=== PATIENT | male | born 1950 | race Caucasian/White ===

== ENCOUNTER 2016-04-01 14:02 | Emergency (ER) | payer OTHER ==
[~2016-04-01] VITALS: Ht 175.3 cm; Wt 100.0 kg
[~2016-04-01 14:02] MED LIST: ALBU6.7H INH; ASMA220A INH; ASPI81TA82 PO; CARD120T4 PO; FLUN25I; IBUP600T26 PO; LEVO50IN PO; METO10TA PO; THIA100T PO; TRAM50TA PO; TRAZ50TA78 PO; WAL-10TA2 PO; ZOCO80TA PO; [UNRECOGNIZED DRUG - CODE] PO
[2016-04-01] MEDS ORDERED: SODIUM CHLORIDE 0.9% FLUSH 5 ML FLUSH IVF PRN (14:30)
[2016-04-01 14:32] VITALS: BP 154/74; PULSE 52; RESP 14; TEMP 97.7; O2SAT 99
--- NOTE | 2016-04-01 14:41 | PD ---
HPI . Chest pain Chief Complaint: Chest Pain Time Seen by Provider: 14:29 Travel History International Travel<30 days: No Contact w/Intl Traveler<30days: No Traveled to known affect area: No History of Present Illness HPI The patient presents to us from the [facility] clinic for chest pain. He was at the [facility] clinic having his toenails trimmed when he developed chest pain. He states that he was treated by 4 baby aspirin and a single sublingual nitroglycerin and he is now pain-free. He denies any shortness of breath, diaphoresis, nausea, dizziness. PFSH Past Medical History Arthritis: Yes (GENERALIZED) Asthma: Yes Autoimmune Disease: No Blood Disorders: Yes (blood clots in legs and lung) Bipolar Disorder: Yes Anxiety: Yes Depression: Yes Heart Rhythm Problems: No Cancer: Yes (LUNG) Cardiovascular Problems: Yes High Cholesterol: Yes Chemotherapy: No Chest Pain: Yes Congestive Heart Failure: No COPD: Yes Cerebrovascular Accident: No Diabetes: No Diminished Hearing: No Endocrine: Yes Gastrointestinal Disorders: Yes (HERNIA) GERD: Yes Genitourinary: No Hiatal Hernia: Yes Hypertension: Yes Immune Disorder: No Implanted Vascular Access Dvce: Yes Musculoskeletal: Yes (NICOLE. WRIST GANGLION CYSTS) Neurologic: Yes Psychiatric: Yes Reproductive: No Respiratory: Yes (COPD) Migraines: Yes Myocardial Infarction: Yes Radiation Therapy: No Seizures: Yes (DT'S) Sleep Apnea: Yes Thyroid Disease: Yes Past Surgical History Abdominal Surgery: Yes (RIGHT INGUINAL HERNIA REPAIR) Body Medical Devices: MANDIBULAR HARDWARE Neurologic Surgery: Yes (MULTIPLE FACIAL TRAUMA R/O HEAD TRAUMA) Oral Surgery: Yes (THROAT TUMOR EXCISED) Thoracic Surgery: Yes (PARTIAL LEFT LOBECTOMY -2006) Other Surgery: Yes (TRACH PLACEMENT AND REMOVAL R/T HEAD TRAUMA) Social History Alcohol Use: Yes (DAILY) Tobacco Use: No Substance Use: Yes (MARIJUANA) Allergies-Medications (Allergen,Severity, Reaction): Coded Allergies: Elavil (Verified Allergy, Severe, HEART MURMUR, 03/22/14) Pupukea (Verified Allergy, Severe, THYROID PROBLEMS?, 03/22/14) Tegretol (Verified Allergy, Severe, HEART MURMUR, 03/22/14) Reported Meds & Prescriptions Reported Meds & Active Scripts Active Reported Loratadine 10 Mg Tab 10 Mg PO DAILY Review of Systems Except as stated in HPI: all other systems reviewed are Neg General / Constitutional: No: Fever, Chills Cardiovascular: Positive: Chest Pain or Discomfort Respiratory: No: Shortness of Breath Gastrointestinal: No: Nausea, Vomiting Neurologic: No: Weakness, Dizziness Physical Exam Narrative GENERAL: This is a 65-year-old man who is awake and alert and in no distress. SKIN: Warm and dry. No diaphoresis. HEAD: Atraumatic. Normocephalic. EYES: Pupils equal and round. ENT: No nasal bleeding or discharge. Mucous membranes pink and moist. NECK: Trachea midline. Neck supple. CARDIOVASCULAR: Regular rate and rhythm. Heart sounds are normal. RESPIRATORY: No accessory muscle use. Lungs clear to auscultation throughout. Chest wall is nontender to palpation. GASTROINTESTINAL: Abdomen soft, non-tender, nondistended. MUSCULOSKELETAL: No obvious deformities. No edema. No leg tenderness. NEUROLOGICAL: Awake and alert. No obvious cranial nerve deficits. Motor grossly within normal limits. Normal speech. PSYCHIATRIC: Appropriate mood and affect; insight and judgment normal. Data Data Last Documented VS Vital Signs Date Time Temp Pulse Resp B/P Pulse Ox O2 Delivery O2 Flow Rate FiO2 04/01/16 14:32 97.7 52 14 154/74 99 Orders Electrocardiogram (04/01/16 14:29) Basic Metabolic Panel (Bmp) (04/01/16 14:29) Ckmb (Isoenzyme) Profile (04/01/16 14:29) Complete Blood Count With Diff (04/01/16 14:29) Magnesium (Mg) (04/01/16 14:29) Prothrombin Time / Inr (Pt) (04/01/16 14:29) Act Partial Throm Time (Ptt) (04/01/16 14:29) Troponin I (04/01/16 14:29) Chest, Single Ap (04/01/16 14:29) Ecg Monitoring (04/01/16 14:29) Iv Access Insert/Monitor (04/01/16 14:29) Sodium Chloride 0.9% Flush (Ns Flush) (04/01/16 14:30) Labs Laboratory Tests Test 04/01/16 14:50 White Blood Count 12.3 TH/MM3 Red Blood Count 4.60 MIL/MM3 Hemoglobin 13.1 GM/DL Hematocrit 39.7 % Mean Corpuscular Volume 86.1 FL Mean Corpuscular Hemoglobin 28.5 PG Mean Corpuscular Hemoglobin 33.1 % Concent Red Cell Distribution Width 15.0 % Platelet Count 269 TH/MM3 Mean Platelet Volume 9.3 FL Neutrophils (%) (Auto) 72.4 % Lymphocytes (%) (Auto) 19.3 % Monocytes (%) (Auto) 6.5 % Eosinophils (%) (Auto) 1.1 % Basophils (%) (Auto) 0.7 % Neutrophils # (Auto) 8.9 TH/MM3 Lymphocytes # (Auto) 2.4 TH/MM3 Monocytes # (Auto) 0.8 TH/MM3 Eosinophils # (Auto) 0.1 TH/MM3 Basophils # (Auto) 0.1 TH/MM3 CBC Comment DIFF FINAL Differential Comment Prothrombin Time 10.7 SEC Prothromb Time International 1.0 RATIO Ratio Activated Partial 27.9 SEC Thromboplast Time Sodium Level 138 MEQ/L Potassium Level 4.4 MEQ/L Chloride Level 104 MEQ/L Carbon Dioxide Level 25.1 MEQ/L Anion Gap 9 MEQ/L Blood Urea Nitrogen 13 MG/DL Creatinine 1.25 MG/DL Estimat Glomerular Filtration 58 ML/MIN Rate Random Glucose 87 MG/DL Calcium Level 9.1 MG/DL Magnesium Level 2.0 MG/DL Total Creatine Kinase 60 U/L Troponin I LESS THAN 0.02 NG/ML MDM Medical Decision Making Medical Screen Exam Complete: Yes Emergency Medical Condition: Yes Interpretation(s) EKG shows a normal sinus rhythm with no ST segment elevation or depression. Differential Diagnosis Differential diagnosis of chest pain includes but is not limited to musculoskeletal pain, pulmonary embolism, acute coronary syndrome, pneumonia, pleurisy Narrative Course This is a 65-year-old who presents to us from the rehabilitation clinic for chest pain which is now resolved. He was treated prior to presentation with aspirin and nitroglycerin. He has multiple underlying medical issues including hypertension, hyperlipidemia, coronary artery disease status post previous WA and previous DVT. Furthermore, he has a history of lung cancer. Chest x-ray is negative to the radiologist's interpretation. Chest x-ray was independently viewed by me. CBC has a white count of 12.3. H&H is 13.1.7. INR is 1.0. Chemistries are remarkable only for a decreased GFR of 58. CK-MB and troponin are negative. Disposition was discussed with the patient. He feels that he is safe to go home. I agree. He states that his doctor just wanted him to come here and have blood work done. He will follow up with her. Diagnosis Primary Impression: Chest pain Qualified Code: R07.9 - Chest pain, unspecified type Patient Instructions: Chest Pain (ED), General Instructions Disposition: 01 DISCHARGE HOME Condition: Stable Nasrin Aguirre MD Apr 01, 2016 14:41
[2016-04-01] MEDS ORDERED: LORA10TA PO (15:03)
[2016-04-01 15:14] LABS: AUTOMATED NEUTROPHIL # 8.9 TH/MM3 (1.8-7.7); BASOPHIL # 0.1 TH/MM3 (0-0.2); BASOPHIL % 0.7 % (0.0-2.0); EOSINOPHIL # 0.1 TH/MM3 (0-0.4); EOSINOPHIL % 1.1 % (0.0-4.0); HEMATOCRIT 39.7 % (39.0-51.0); HEMO FLAGS DIFF FINAL; LYMPH % 19.3 % (9.0-44.0); LYMPHOCYTE # 2.4 TH/MM3 (1.0-4.8); MEAN CELL VOLUME 86.1 FL (80.0-100.0); MEAN CORPUSCULAR HEMOGLOBIN 28.5 PG (27.0-34.0); MEAN CORPUSCULAR HGB CONC 33.1 % (32.0-36.0); MONO % 6.5 % (0.0-8.0); NEUT % 72.4 % (16.0-70.0); PLATELET COUNT 269 TH/MM3 (150-450); WHITE BLOOD COUNT 12.3 TH/MM3 (4.0-11.0)
--- NOTE | 2016-04-01 15:22 | RADRPT ---
EXAM DATE/TIME: 04/01/2016 14:42 [facility] COMPARISON: CHEST SINGLE AP, June 01, 2013, 14:24. INDICATIONS : Chest pain MEDICAL HISTORY : None. SURGICAL HISTORY : None. ENCOUNTER: Initial ACUITY: 1 day PAIN SCORE: 4/10 LOCATION: Bilateral chest FINDINGS: A single view of the chest demonstrates the lungs to be symmetrically aerated without evidence of mas s, infiltrate or effusion. Minimal scarring left lower lobe. The cardiomediastinal contours are unre markable. Osseous structures are intact. CONCLUSION: 1. Minimal scarring left lower lobe. 2. Right lung is clear. Zach Kulkarni MD on April 01, 2016 at 15:19 Board Certified Radiologist. This report was verified electronically.
[2016-04-01 15:25] LABS: APTT (PATIENT) 27.9 SEC (24.3-30.1); PROTHROMBIN TIME - PATIENT 10.7 SEC (9.8-11.6)
[2016-04-01 15:43] LABS: ANION GAP 9 MEQ/L (5-15); BICARBONATE 25.1 MEQ/L (21.0-32.0); BLOOD UREA NITROGEN 13 MG/DL (7-18); CHLORIDE 104 MEQ/L (98-107); GLOMERULAR FILTRATION RATE 58 ML/MIN (>89); POTASSIUM 4.4 MEQ/L (3.5-5.1); SODIUM (NA) 138 MEQ/L (136-145)
[2016-04-01 15:56] LABS: CREATINE KINASE 60 U/L (39-308)
--- NOTE | 2016-04-02 15:24 | EKG ---
Date Performed: 04/01/2016 Time Performed: 14:48:47 PTAGE: 65 years EKG: SINUS BRADYCARDIA LOW QRS VOLTAGE IN EXTREMITY LEADS LEFT ANTERIOR FASCICULAR BLOCK INFERIO R MYOCARDIAL INFARCTION ABNORMAL ECG PREVIOUS TRACING : 06/01/2013 15.10 Compared to previous tracing, the patient is no longer tach ycardic. DOCTOR: Bita Turner Interpretating Date/Time 04/02/2016 15:23:26
== END 2016-04-02 00:36 | disposition home or self-care (01) ==
LOC: NEDAMB 14:02
DX: R07.9 Chest pain, unspecified (principal); E78.00 Pure hypercholesterolemia, unspecified; J44.9 Chronic obstructive pulmonary disease, unspecified; K21.9 Gastro-esophageal reflux disease without esophagitis; I10 Essential (primary) hypertension; R00.1 Bradycardia, unspecified; R94.31 Abnormal electrocardiogram [ECG] [EKG]; I44.4 Left anterior fascicular block; I25.2 Old myocardial infarction
CPT/HCPCS: 71010; 80048; 82550; 83735; 84484; 85025; 85610; 85730; 93005

== ENCOUNTER 2016-12-03 06:31 | Observation (INO) | payer MEDICARE, OTHER ==
[~2016-12-03] VITALS: Ht 177.8 cm; Wt 100.0 kg
[~2016-12-03 06:31] MED LIST changes: -ALBU6.7H INH; -ASMA220A INH; -ASPI81TA82 PO; -CARD120T4 PO; -FLUN25I; -IBUP600T26 PO; -LEVO50IN PO; +LORA10TA PO; -METO10TA PO; -THIA100T PO; -TRAM50TA PO; -TRAZ50TA78 PO; -WAL-10TA2 PO; -ZOCO80TA PO; -[UNRECOGNIZED DRUG - CODE] PO
[2016-12-03 06:32] VITALS: BP 142/74; PULSE 84; RESP 17; TEMP 97.7; O2SAT 97
[2016-12-03] MEDS ORDERED: RESP: ALBUTEROL 2.5 MG/IPRATROPIUM 0.5 MG NEB (SCH) INH ONE (07:30)
[2016-12-03] MEDS ORDERED: RESP: ALBUTEROL 2.5 MG/3 ML NEB (SCH) INH ONE (07:30)
--- NOTE | 2016-12-03 07:32 | PD ---
HPI Chief Complaint: Respiratory Distress Time Seen by Provider: 07:22 Travel History International Travel<30 days: No Contact w/Intl Traveler<30days: No Traveled to known affect area: No History of Present Illness HPI This is a 66-year-old gentleman with history of COPD, esophageal strictures, who presents today with complaints of shortness of breath and vomiting. The patient reports that when he drinks or eats anything, he throws it right back up again. He reports pulling of his secretions. He reports last night he had to sleep sitting up because he could not swallow the fluid in his esophagus. The patient denies any chest pain, chest pressure. He called EMS this morning who gave him 125 mg of Solu-Medrol and one breathing treatment. He states in the past he's had to have esophageal dilatation. He states he was just recently admitted to [facility] for broken ribs and COPD and pneumonia. PFSH Past Medical History Arthritis: Yes (GENERALIZED) Asthma: Yes Autoimmune Disease: No Blood Disorders: Yes (blood clots in legs and lung) Bipolar Disorder: Yes Anxiety: Yes Depression: Yes Heart Rhythm Problems: No Cancer: Yes (LUNG) Cardiovascular Problems: Yes High Cholesterol: Yes Chemotherapy: No Chest Pain: Yes Congestive Heart Failure: No COPD: Yes Cerebrovascular Accident: No Diabetes: No Diminished Hearing: No Endocrine: Yes Gastrointestinal Disorders: Yes (HERNIA; esophageal stenosis w/dilation of esophagus) GERD: Yes Genitourinary: No Hiatal Hernia: Yes Hypertension: Yes Immune Disorder: No Implanted Vascular Access Dvce: Yes Musculoskeletal: Yes (NICOLE. WRIST GANGLION CYSTS) Neurologic: Yes Psychiatric: Yes Reproductive: No Respiratory: Yes (COPD) Migraines: Yes Myocardial Infarction: Yes Radiation Therapy: No Seizures: Yes (DT'S) Sleep Apnea: Yes Thyroid Disease: Yes Past Surgical History Abdominal Surgery: Yes (RIGHT INGUINAL HERNIA REPAIR) Body Medical Devices: MANDIBULAR HARDWARE Neurologic Surgery: Yes (MULTIPLE FACIAL TRAUMA R/O HEAD TRAUMA) Oral Surgery: Yes (THROAT TUMOR EXCISED) Thoracic Surgery: Yes (PARTIAL LEFT LOBECTOMY -2006) Other Surgery: Yes (TRACH PLACEMENT AND REMOVAL R/T HEAD TRAUMA) Social History Alcohol Use: Yes (DAILY) Tobacco Use: Yes Substance Use: Yes (MARIJUANA) Allergies-Medications (Allergen,Severity, Reaction): Coded Allergies: amitriptyline (Unverified Allergy, Severe, HEART MURMUR, 12/03/16) carbamazepine (Unverified Allergy, Severe, HEART MURMUR, 12/03/16) lithium (Unverified Allergy, Severe, THYROID PROBLEMS?, 12/03/16) Reported Meds & Prescriptions Reported Meds & Active Scripts Active Reported Eql Nicotine (Nicotine Polacrilex) 2 Mg Simone Q1HR NEB Eq Nicotine (Nicotine) 14 Mg/24 Hour Dis Metoprolol Succinate ER 24 HR (Metoprolol Succinate) 100 Mg Tab 100 Mg PO DAILY Allergy Relief (Loratadine) 10 Mg Tab 10 Mg PO DAILY Levothyroxine (Levothyroxine Sodium) 25 Mcg Tab 0.125 Mcg PO AC BREAKFAST Indomethacin 25 Mg Cap 25 Mg PO TID Take with food, milk, or antacids to decrease stomach adverse effects. Cough Syrup (Guaifenesin) 100 Mg/5 Ml Liquid Folic Acid 0.8 Mg Tab 1 Mg PO DAILY Kls Aller-Luis Armando (Fluticasone Propionate (Nasal)) 50 Mcg/Actuation Spr Vitamin D3 (Cholecalciferol) 2,000 Unit Cap 2,000 Units PO DAILY Atorvastatin (Atorvastatin Calcium) 40 Mg Tab 40 Mg PO HS Aspirin EC (Aspirin) 81 Mg Tabdr 81 Mg PO DAILY Tylenol (Acetaminophen) 325 Mg Tab 650 Mg PO Q8HR PRN Review of Systems Except as stated in HPI: all other systems reviewed are Neg General / Constitutional: No: Fever, Chills HENT: No: Headaches, Neck Pain Cardiovascular: No: Chest Pain or Discomfort, Palpitations Respiratory: Positive: Cough, Shortness of Breath, Wheezing Gastrointestinal: Positive: Nausea, Vomiting, No: Abdominal Pain Genitourinary: No: Dysuria, Decreased Urinary Output Musculoskeletal: No: Weakness, Pain Neurologic: No: Weakness, Dizziness, Headache Physical Exam Narrative GENERAL: Well-developed well-nourished male in no acute respiratory distress. SKIN: Focused skin assessment warm/dry. HEAD: Atraumatic. Normocephalic. EYES: Pupils equal and round. No scleral icterus. No injection or drainage. ENT: No nasal bleeding or discharge. Mucous membranes pink and moist. NECK: Trachea midline. Supple. CARDIOVASCULAR: Regular rate and rhythm. No murmur appreciated. RESPIRATORY: No accessory muscle use. Fine Rales heard at the bilateral bases. No rhonchi appreciated. GASTROINTESTINAL: Abdomen soft, non-tender, nondistended. MUSCULOSKELETAL: No obvious deformities. No clubbing. No cyanosis. No edema. NEUROLOGICAL: Awake and alert. No obvious cranial nerve deficits. Motor grossly within normal limits. Normal speech. PSYCHIATRIC: Appropriate mood and affect; insight and judgment normal. Data Data Last Documented VS Vital Signs Date Time Temp Pulse Resp B/P (MAP) Pulse Ox O2 Delivery O2 Flow Rate FiO2 12/03/16 08:04 98 Nasal Cannula 3.00 12/03/16 06:32 97.7 84 17 142/74 (96) Orders Orders Complete Blood Count With Diff (12/03/16 07:22) Basic Metabolic Panel (Bmp) (12/03/16 07:22) Ckmb (Isoenzyme) Profile (12/03/16 07:22) Troponin I (12/03/16 07:22) Iv Access Insert/Monitor (12/03/16 07:22) Ecg Monitoring (12/03/16 07:22) Oximetry (12/03/16 07:22) Oxygen Administration (12/03/16 07:22) Chest, Pa & Lat (12/03/16 07:22) Sodium Chloride 0.9% Flush (Ns Flush) (12/03/16 07:30) Albuterol-Ipratropium Neb (Duoneb Neb) (12/03/16 07:30) Albuterol Neb (Albuterol Neb) (12/03/16 07:30) B-Type Natriuretic Peptide (12/03/16 07:22) Electrocardiogram (12/03/16 06:32) Place In Observation (12/03/16 ) Vital Signs (Adult) Q4H (12/03/16 09:03) Activity Oob With Assistance (12/03/16 09:03) Diet Npo (12/03/16 Breakfast) Sodium Chlor 0.9% 1000 Ml Inj (Ns 1000 M (12/03/16 09:03) Ondansetron Inj (Zofran Inj) (12/03/16 09:15) Basic Metabolic Panel (Bmp) (12/04/16 06:00) Complete Blood Count With Diff (12/04/16 06:00) Speech Therapy Consult-Eval/Tx (12/03/16 09:03) Scd Bilateral/Knee High PRISCILLA.BID (12/03/16 09:03) Yossi Bilateral/Knee High PRISCILLA.QSHIFT (12/03/16 09:03) Naloxone Inj (Narcan Inj) (12/03/16 09:15) Magnesium Hydroxide Liq (Milk Of Magnesi (12/03/16 09:15) Sennosides (Senokot) (12/03/16 09:15) Bisacodyl Supp (Dulcolax Supp) (12/03/16 09:15) Lactulose Liq (Lactulose Liq) (12/03/16 09:15) Consult Gastroenterology (12/03/16 ) Admit Order (Ed Use Only) (12/03/16 09:03) Labs Laboratory Tests Test 12/03/16 07:00 White Blood Count 16.7 TH/MM3 Red Blood Count 4.56 MIL/MM3 Hemoglobin 13.1 GM/DL Hematocrit 40.1 % Mean Corpuscular Volume 88.1 FL Mean Corpuscular Hemoglobin 28.8 PG Mean Corpuscular Hemoglobin Concent 32.7 % Red Cell Distribution Width 15.7 % Platelet Count 336 TH/MM3 Mean Platelet Volume 9.4 FL Neutrophils (%) (Auto) 67.0 % Lymphocytes (%) (Auto) 21.7 % Monocytes (%) (Auto) 6.8 % Eosinophils (%) (Auto) 3.7 % Basophils (%) (Auto) 0.8 % Neutrophils # (Auto) 11.2 TH/MM3 Lymphocytes # (Auto) 3.6 TH/MM3 Monocytes # (Auto) 1.1 TH/MM3 Eosinophils # (Auto) 0.6 TH/MM3 Basophils # (Auto) 0.1 TH/MM3 CBC Comment DIFF FINAL Differential Comment Blood Urea Nitrogen 9 MG/DL Creatinine 1.21 MG/DL Random Glucose 108 MG/DL Calcium Level 9.2 MG/DL Sodium Level 133 MEQ/L Potassium Level 4.4 MEQ/L Chloride Level 98 MEQ/L Carbon Dioxide Level 25.7 MEQ/L Anion Gap 9 MEQ/L Estimat Glomerular Filtration Rate 60 ML/MIN Total Creatine Kinase 43 U/L Troponin I LESS THAN 0.02 NG/ML MDM Medical Decision Making Medical Screen Exam Complete: Yes Emergency Medical Condition: Yes Differential Diagnosis Esophageal stricture versus COPD exacerbation versus pneumonia versus CHF Narrative Course 66-year-old male presents with shortness of breath and vomiting. The patient has a history of esophageal strictures that's been stretched in the past. He states that last night he was coughing and spitting up and vomiting fluid that was curling up from his esophagus and stomach. He states that he was worried that he would stop breathing. He denies any fevers, chills. He reports that he was recently admitted to [facility] for pneumonia and rib fractures. His white blood cell count is 16,700. On exam he has Rales in his bilateral bases. Chest x-ray does not show infiltrate. My concern is that he may have had aspiration pneumonia. I discussed the case with Dr. Dusty Arango, [place], who agrees for an observation admission. He' ll likely need a GI consult. Diagnosis Primary Impression: COPD exacerbation Additional Impressions: Nausea & vomiting Leukocytosis suspected aspiration pneumonia Admitting Information Admitting Physician Requests: Observation Drew James MD Dec 03, 2016 07:32
[2016-12-03 07:45] LABS: AUTOMATED NEUTROPHIL # 11.2 TH/MM3 (1.8-7.7); BASOPHIL # 0.1 TH/MM3 (0-0.2); BASOPHIL % 0.8 % (0.0-2.0); EOSINOPHIL # 0.6 TH/MM3 (0-0.4); EOSINOPHIL % 3.7 % (0.0-4.0); HEMATOCRIT 40.1 % (39.0-51.0); HEMO FLAGS DIFF FINAL; LYMPH % 21.7 % (9.0-44.0); LYMPHOCYTE # 3.6 TH/MM3 (1.0-4.8); MEAN CELL VOLUME 88.1 FL (80.0-100.0); MEAN CORPUSCULAR HEMOGLOBIN 28.8 PG (27.0-34.0); MEAN CORPUSCULAR HGB CONC 32.7 % (32.0-36.0); MONO % 6.8 % (0.0-8.0); PLATELET COUNT 336 TH/MM3 (150-450); RED BLOOD COUNT 4.56 MIL/MM3 (4.50-5.90); RED CELL DISTRIBUTION WIDTH 15.7 % (11.6-17.2); WHITE BLOOD COUNT 16.7 TH/MM3 (4.0-11.0)
[2016-12-03 07:47] VITALS: O2SAT 98
[2016-12-03 08:02] LABS: ANION GAP 9 MEQ/L (5-15); BICARBONATE 25.7 MEQ/L (21.0-32.0); BLOOD UREA NITROGEN 9 MG/DL (7-18); CHLORIDE 98 MEQ/L (98-107); GLOMERULAR FILTRATION RATE 60 ML/MIN (>89); POTASSIUM 4.4 MEQ/L (3.5-5.1); SODIUM (NA) 133 MEQ/L (136-145)
[2016-12-03 08:04] VITALS: O2SAT 98
[2016-12-03 08:07] LABS: CREATINE KINASE 43 U/L (39-308)
[2016-12-03] MEDS ORDERED: ATOR40TA16 PO (08:18)
[2016-12-03] MEDS ORDERED: FOLI800T PO (08:18)
[2016-12-03] MEDS ORDERED: TYLE325T PO (08:18)
[2016-12-03] MEDS ORDERED: ASPI81TA11 PO (08:18)
[2016-12-03] MEDS ORDERED: FLUT1SPR14 (08:18)
[2016-12-03] MEDS ORDERED: VITA2000 PO (08:18)
[2016-12-03] MEDS ORDERED: NICO14DI23 (08:22)
[2016-12-03] MEDS ORDERED: INDO25CA PO (08:22)
[2016-12-03] MEDS ORDERED: [UNRECOGNIZED DRUG - CODE] (08:22)
[2016-12-03] MEDS ORDERED: ALLE10TA PO (08:22)
[2016-12-03] MEDS ORDERED: LEVO25TA4 PO (08:22)
[2016-12-03] MEDS ORDERED: GUAI1SYP15 (08:22)
[2016-12-03] MEDS ORDERED: METO100T9 PO (08:22)
--- NOTE | 2016-12-03 08:24 | RADRPT ---
EXAM DATE/TIME: 12/03/2016 07:44 [facility] COMPARISON: No previous studies available for comparison. INDICATIONS : Vomitting, left sided chest pain, and coughing. MEDICAL HISTORY : None. SURGICAL HISTORY : Cardiac stents. ENCOUNTER: Initial ACUITY: 2 days PAIN SCORE: 4/10 LOCATION: Left chest FINDINGS: PA and lateral views of the chest demonstrate the lungs to be symmetrically aerated without evidence of mass, infiltrate or effusion. The cardiomediastinal contours are unremarkable. Osseous structure s are intact. Mild bowel distention is evident without free air. CONCLUSION: No acute disease. Mild bowel distention. There is no free air. Rodger Almanzar MD FACR on December 03, 2016 at 8:22 Board Certified Radiologist. This report was verified electronically.
[2016-12-03] MEDS ORDERED: LACTULOSE SYRUP 20 GM/30 ML CUP PO PRN (09:15)
[2016-12-03] MEDS ORDERED: BISACODYL 10 MG SUPP RECTAL PRN (09:15)
[2016-12-03] MEDS ORDERED: MAGNESIUM HYDROXIDE SUSP 30 ML CUP PO PRN (09:15)
[2016-12-03] MEDS ORDERED: SENNOSIDES 8.6 MG TAB PO PRN (09:15)
[2016-12-03] MEDS ORDERED: NALOXONE HCL 0.4 MG/ML AMP IV PRN (09:15)
[2016-12-03] MEDS ORDERED: ONDANSETRON HCL 4 MG/2 ML VIAL IVP PRN (09:15)
[2016-12-03] MEDS: SODIUM CHLOR 0.9% 1000 ML INJ 1,000 ML IV SCH (10:22)
--- NOTE | 2016-12-03 11:24 | EKG ---
Date Performed: 12/03/2016 Time Performed: 06:32:04 PTAGE: 66 years EKG: Sinus rhythm PATTERN CONSISTENT WITH PULMONARY DISEASE POSSIBLE RIGHT VENTRICULAR CONDUCTION DELAY POSSIBLE INFER IOR MYOCARDIAL INFARCTION ABNORMAL ECG PREVIOUS TRACING : 04/01/2016 14.48 Compared to previous tracing, heart rate has increased. DOCTOR: Lusi Farias Interpretating Date/Time 12/03/2016 11:22:57
--- NOTE | 2016-12-03 12:01 | HHI.HP ---
HPI Service [facility] Primary Care Physician [facility] Admission Diagnosis copd exacerbation, nausea vomiting, esophageal strictures, questiona Diagnoses: (1) COPD exacerbation Chief Complaint: Dysphagia, nausea and vomiting Shortness of breath Travel History International Travel<30 Days: No Contact w/Intl Traveler <30 Da: No Traveled to Known Affected Are: No Sepsis Criteria SIRS Criteria (2 or more): WBC > 50257, < 4000 or > 10% bands History of Present Illness Written by Stephanie Gonzáles, acting as scribe for Dr. Arango on 12/03/16 at 1201. Mr. Zavala is a 66-year-old male patient with a known medical history of COPD, hypertension, sleep apnea, and history of esophageal strictures who presented to the ED with complaints of trouble swallowing last evening. He states that when he was drinking a milkshake last evening when he "felt his lungs and throat filling with fluid". States that whatever he attempted to consume he would just throw back up again. He said he had to continue sitting up due to the feeling and "nothing felt like it was staying down". Patient states this is his fourth presentation to the ED in two months for a mixture of bronchial infections, pneumonia, severe coughing and rib fractures due to coughing. He reports a recent admission to [facility] recently for pneumonia and COPD exacerbation. Denies any recent fever, chills, chest pain, palpitations, lightheadedness, dizziness, headache, abdominal pain, diarrhea or dysuria. Reportedly patient has had esophageal strictures x 2 this year. Denies any hematozemia. 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 Hypertension GERD Hernia Esophageal stenosis with dilation of esophagus Sleep apnea Hypothyroidism Tobacco abuse Alcohol abuse BPH Past Surgical History RIGHT INGUINAL HERNIA REPAIR MANDIBULAR HARDWARE MULTIPLE FACIAL TRAUMA R/O HEAD TRAUMA THROAT TUMOR EXCISED PARTIAL LEFT LOBECTOMY -2006 TRACH PLACEMENT AND REMOVAL R/T HEAD TRAUMA Reported Medications Reported Meds & Active Scripts Active Reported Eql Nicotine (Nicotine Polacrilex) 2 Mg Simone Q1HR NEB Eq Nicotine (Nicotine) 14 Mg/24 Hour Dis Metoprolol Succinate ER 24 HR (Metoprolol Succinate) 100 Mg Tab 100 Mg PO DAILY Allergy Relief (Loratadine) 10 Mg Tab 10 Mg PO DAILY Levothyroxine (Levothyroxine Sodium) 25 Mcg Tab 0.125 Mcg PO AC BREAKFAST Indomethacin 25 Mg Cap 25 Mg PO TID Take with food, milk, or antacids to decrease stomach adverse effects. Cough Syrup (Guaifenesin) 100 Mg/5 Ml Liquid Folic Acid 0.8 Mg Tab 1 Mg PO DAILY Kls Aller-Luis Armando (Fluticasone Propionate (Nasal)) 50 Mcg/Actuation Spr Vitamin D3 (Cholecalciferol) 2,000 Unit Cap 2,000 Units PO DAILY Atorvastatin (Atorvastatin Calcium) 40 Mg Tab 40 Mg PO HS Aspirin EC (Aspirin) 81 Mg Tabdr 81 Mg PO DAILY Tylenol (Acetaminophen) 325 Mg Tab 650 Mg PO Q8HR PRN Allergies: Coded Allergies: amitriptyline (Unverified Allergy, Severe, HEART MURMUR, 12/03/16) carbamazepine (Unverified Allergy, Severe, HEART MURMUR, 12/03/16) lithium (Unverified Allergy, Severe, THYROID PROBLEMS?, 12/03/16) Active Ordered Medications Current Medications Medications (Trade) Dose Ordered Sig/Inocencia Route Start Time Stop Time Status Last Admin (NS Flush) 2 ml UNSCH PRN IVF 12/03/16 07:30 Sodium Chloride 1,000 ml @ 70 mls/hr [id number] IV 12/03/16 10:00 12/03/16 10:22 (Zofran Inj) 4 mg Q6H PRN IVP 12/03/16 09:15 (Narcan Inj) 0.4 mg UNSCH PRN IV 12/03/16 09:15 (Milk Of Magnesia Liq) 30 ml Q12H PRN PO 12/03/16 09:15 (Senokot) 17.2 mg Q12H PRN PO 12/03/16 09:15 (Dulcolax Supp) 10 mg DAILY PRN RECTAL 12/03/16 09:15 (Lactulose Liq) 30 ml DAILY PRN PO 12/03/16 09:15 Family History Paternal medical history significant for lung cancer. Social History Patient is in the process of quitting smoking and alcohol use. Does admit to occasional marijuana use. Physical Exam Vital Signs Vital Signs Date Time Temp Pulse Resp B/P (MAP) Pulse Ox O2 Delivery O2 Flow Rate FiO2 12/03/16 08:04 98 Nasal Cannula 3.00 12/03/16 07:47 98 Nasal Cannula 2.00 12/03/16 07:47 98 Nasal Cannula 2.00 12/03/16 06:35 97 Nasal Cannula 2.00 12/03/16 06:32 97.7 84 17 142/74 (96) 97 Physical Exam GENERAL: This is a well-nourished, well-developed male patient, lying in bed in no apparent distress on 2L NC. SKIN: No rashes, ecchymoses or lesions. Warm and dry. HEENT: Atraumatic. Normocephalic.Pupils equal round and reactive. Extraocular motions intact. No scleral icterus. No injection or drainage. Nose without bleeding. Airway patent. NECK: Trachea midline. No JVD or lymphadenopathy. Supple, nontender, no meningeal signs. CARDIOVASCULAR: Regular rate and rhythm without murmurs, gallops, or rubs. RESPIRATORY: Clear to auscultation. Breath sounds equal bilaterally. No wheezes , rales, or rhonchi. GASTROINTESTINAL: Abdomen soft, non-tender, round. No guarding. MUSCULOSKELETAL: Extremities without clubbing, cyanosis, or edema. No joint tenderness, effusion, or edema noted. NEUROLOGICAL: Awake and alert. Cranial nerves II through XII intact. Motor and sensory grossly within normal limits. Five out of 5 muscle strength in all muscle groups. Normal speech. Laboratory Laboratory Tests Test 12/03/16 07:00 White Blood Count 16.7 Red Blood Count 4.56 Hemoglobin 13.1 Hematocrit 40.1 Mean Corpuscular Volume 88.1 Mean Corpuscular Hemoglobin 28.8 Mean Corpuscular Hemoglobin Concent 32.7 Red Cell Distribution Width 15.7 Platelet Count 336 Mean Platelet Volume 9.4 Neutrophils (%) (Auto) 67.0 Lymphocytes (%) (Auto) 21.7 Monocytes (%) (Auto) 6.8 Eosinophils (%) (Auto) 3.7 Basophils (%) (Auto) 0.8 Neutrophils # (Auto) 11.2 Lymphocytes # (Auto) 3.6 Monocytes # (Auto) 1.1 Eosinophils # (Auto) 0.6 Basophils # (Auto) 0.1 CBC Comment DIFF FINAL Differential Comment Blood Urea Nitrogen 9 Creatinine 1.21 Random Glucose 108 Calcium Level 9.2 Sodium Level 133 Potassium Level 4.4 Chloride Level 98 Carbon Dioxide Level 25.7 Anion Gap 9 Estimat Glomerular Filtration Rate 60 Total Creatine Kinase 43 Troponin I LESS THAN 0.02 B-Type Natriuretic Peptide 28 Result Diagram: 12/03/1669912/03/16699 Imaging Last Impressions Chest X-Ray 12/03/16721 Signed Impressions: Service Date/Time: Saturday, December 03, 2016 07:44 - CONCLUSION: No acute disease. Mild bowel distention. There is no free air. Rodger Almanzar MD FACR Caprini VTE Risk Assessment Caprini VTE Risk Assessment: Mod/High Risk (score >= 2) Caprini Risk Assessment Model Point Value = 1 Point Value = 2 Point Value = 3 Point Value = 5 Age 41-60 Minor surgery BMI > 25 kg/m2 Swollen legs Varicose veins or History of unexplained or recurrent spontaneous Oral contraceptives or hormone replacement Sepsis (< 1 month) Serious lung disease, including pneumonia (< 1 month) Abnormal pulmonary function Acute myocardial infarction Congestive heart failure (< 1 month) History of inflammatory bowel disease Medical patient at bed rest Age 61-74 Arthroscopic surgery Major open surgery (> 45 min) Laparoscopic surgery (> 45 min) Malignancy Confined to bed (> 72 hours) Immobilizing plaster cast Central venous access Age >= 75 History of VTE Family history of VTE Factor V Leiden Prothrombin [id number] Lupus anticoagulant Anticardiolipin antibodies Elevated serum homocysteine Heparin-induced thrombocytopenia Other congenital or acquired thrombophilia Stroke (< 1 month) Elective arthroplasty Hip, pelvis, or leg fracture Acute spinal cord injury (< 1 month) Prophylaxis Regimen Total Risk Factor Score Risk Level Prophylaxis Regimen 0-1 Low Early ambulation 2 Moderate Order ONE of the following: *Sequential Compression Device (SCD) *Heparin 5000 units SQ BID 3-4 Higher Order ONE of the following medications: *Heparin 5000 units SQ TID *Enoxaparin/Lovenox 40 mg SQ daily (WT < 150 kg, CrCl > 30 mL/min) *Enoxaparin/Lovenox 30 mg SQ daily (WT < 150 kg, CrCl > 10-29 mL/min) *Enoxaparin/Lovenox 30 mg SQ BID (WT < 150 kg, CrCl > 30 mL/min) AND/OR *Sequential Compression Device (SCD) 5 or more Highest Order ONE of the following medications: *Heparin 5000 units SQ TID (Preferred with Epidurals) *Enoxaparin/Lovenox 40 mg SQ daily (WT < 150 kg, CrCl > 30 mL/min) *Enoxaparin/Lovenox 30 mg SQ daily (WT < 150 kg, CrCl > 10-29 mL/min) *Enoxaparin/Lovenox 30 mg SQ BID (WT < 150 kg, CrCl > 30 mL/min) AND *Sequential Compression Device (SCD) Assessment and Plan Assessment and Plan Mr. Zavala is a 66-year-old male patient with a known medical history of COPD, hypertension, sleep apnea, and history of esophageal strictures who presented to the ED with complaints of trouble swallowing last evening. He states that when he was drinking a milkshake last evening when he "felt his lungs and throat filling with fluid". States that whatever he attempted to consume he would just throw back up again. He said he had to continue sitting up due to the feeling and "nothing felt like it was staying down". Denies any recent fever , chills, chest pain, palpitations, lightheadedness, dizziness, headache, abdominal pain, diarrhea or dysuria. COPD exacerbation Leukocytosis suspect secondary to above - CXR reviewed showing no acute disease. Mild bowel distention. No free air. - WBC 16.7 on presentation. Afebrile. BNP 28. - Duonebs given in ED. Continue duonebs scheduled and PRN. - Continue supplemental O2 to keep sats >88%. Nausea and vomiting History of esophageal strictures - Assure hydration, start on IVF NS @ 70 ml/hr. - Control nausea, Zofran PRN. Reportedly improved. - Will start on heart healthy diet, assess swallow ability. ST consulted, appreciate recommendations. - Consult placed to GI, appreciate recommendations. Sleep apnea - Home CPAP at night as needed. Hypertension, chronic: Controlled at this time. Will continue to monitor BP. DVT prophylaxis: SCDs/TEDs This note was transcribed by alva Gonzáles. I, Dr. Dusty Arango personally performed the history, physical exam, and medical decision making; and confirmed the accuracy of the information in the transcribed note. Authenticated by Dr. Dusty Arango on 12/03/16 at 14:25. Stephanie Gonzáles Dec 03, 2016 12:01 Dusty Arango MD Dec 03, 2016 14:25
[2016-12-03 19:24] VITALS: BP 134/68; PULSE 106; RESP 18; TEMP 98.1; O2SAT 95
[2016-12-03 19:35] VITALS: O2SAT 95
[2016-12-03] MEDS: RESP: ALBUTEROL 2.5 MG/IPRATROPIUM 0.5 MG NEB (SCH) NEB (19:35)
[2016-12-03] MEDS: ATORVASTATIN 40 MG TAB PO SCH (21:12)
[2016-12-03] MEDS: guaiFENesin SOLUTION 200 MG/10 ML CUP PO PRN (21:13)
[2016-12-03] MEDS: FLUTICASONE PROPIONATE 50 MCG/ACT 16 GM NASAL SPRAY NASAL SCH (21:44)
[2016-12-04] VITALS (10 sets, daily range): BP systolic 127–150; BP diastolic 60–78; PULSE 67–100; RESP 17–20; TEMP 97.6–98.6; O2SAT 95–99
[2016-12-04] MEDS: SODIUM CHLOR 0.9% 1000 ML INJ 1,000 ML IV SCH ×2 (00:01→13:19)
[2016-12-04] MEDS: RESP: ALBUTEROL 2.5 MG/IPRATROPIUM 0.5 MG NEB (PRN) NEB ×2 (00:21→00:22)
[2016-12-04] MEDS: LEVOTHYROXINE SODIUM 125 MCG TAB PO SCH (06:26)
--- NOTE | 2016-12-04 06:33 | MB ---
cc: JO ANN HERNANDEZ DATE OF CONSULTATION 12/03/2016 DATE OF [address] Arango REASON FOR REFERRAL Dysphagia Thank you for the consultation for this 66-year-old gentleman who has multiple medical problems including sleep apnea, COPD, hypertension. Patient known to have esophageal stricture status post dilation twice at least this year. The patient came because he was having difficulty swallowing. He stated that the milkshake did not go down and he felt that his lungs and throat filled with fluid. Currently, the patient able to tolerate some liquid. He had a history of recent exacerbation with pneumonia and COPD. PAST MEDICAL HISTORY A long list includin. Asthma 2. Depression/anxiety 3. Dyslipidemia 4. COPD 5. DVD reflux symptom 6. Hernia repair 7. Esophageal stricture with dilation 8. Sleep apnea 9. Hypothyroidism 10. Tobacco abuse 11. Alcohol abuse 12. Arthritis 13. BPH PAST SURGICAL HISTORY Multiple surgery includin. Trache placement 2. Partial lobectomy 3. Had a fall with facial trauma, mandibular hardware 4. Right inguinal hernia repair. MEDICATIONS Reviewed in the chart. ALLERGIES CARBAMAZEPINE, AMITRIPTYLINE AND LITHIUM SOCIAL HISTORY Still drinking and smoking with occasional marijuana. FAMILY HISTORY Lung cancer. PHYSICAL EXAMINATION Alert, oriented no acute distress. VITAL SIGNS: Stable. HEENT: Pupils are round and reactive to light. NECK: Supple. CHEST: Bilateral rales and crackles. CARDIAC: Regular rate and rhythm. ABDOMEN: Soft, nondistended, nontender. EXTREMITIES: No edema or clubbing. LABORATORY DATA White count 16.7, hemoglobin 13.1, platelet 336. Chemistry normal. CHEST X-RAYS Unremarkable ASSESSMENT/PLAN A 66-year-old gentleman with dysphagia felt that the food got stuck in throat but he is able to be now. I recommend doing upper endoscopy with possible dilation. I discussed with the patient, the procedure and he agreed to have this done. This will be done as an inpatient. MD NGA Galloway/MILIND /10:33 PM /6:26 AM
[2016-12-04] MEDS: RESP: ALBUTEROL 2.5 MG/IPRATROPIUM 0.5 MG NEB (SCH) NEB ×3 (07:27→21:16)
[2016-12-04] MEDS: FLUTICASONE PROPIONATE 50 MCG/ACT 16 GM NASAL SPRAY NASAL SCH ×2 (08:14→21:32)
[2016-12-04] MEDS: LORATADINE 10 MG TAB PO SCH (08:14)
[2016-12-04] MEDS: METOPROLOL SUCCINATE 50 MG EXTENDED RELEASE TAB PO SCH (08:15)
--- NOTE | 2016-12-04 10:38 | HHI.PR ---
Subjective Remarks Follow-up dysphagia, COPD. Patient states that he is still having some difficulty swallowing. Still feels short of breath as well. No chest pain. Objective Vitals Vital Signs Date Time Temp Pulse Resp B/P (MAP) Pulse Ox O2 Delivery O2 Flow Rate FiO2 12/04/16 08:04 98.2 82 19 138/62 (87) 95 12/04/16 07:28 99 Nasal Cannula 2.00 12/04/16 03:56 98.5 87 18 127/75 (92) 99 12/04/16 00:44 95 12/04/16 00:07 98.2 100 18 135/78 (97) 98 12/03/16 19:35 95 Nasal Cannula 2.00 12/03/16 19:24 98.1 106 18 134/68 (90) 95 I/O 12/03/16 12/03/16 12/03/16 12/04/16 12/04/16 12/04/16 07:00 15:00 23:00 07:00 15:00 23:00 Intake Total 480 ml Output Total 850 ml Balance -370 ml Intake Oral 480 ml Output Urine Total 850 ml Result Diagram: 12/03/1669912/03/16699 Imaging Last Impressions Chest X-Ray 12/03/16721 Signed Impressions: Service Date/Time: Saturday, December 03, 2016 07:44 - CONCLUSION: No acute disease. Mild bowel distention. There is no free air. Rodger Almanzar MD FACR Objective Remarks General: Elderly male in no acute distress. Heart: Regular rate and rhythm. No murmur. Lungs: Scattered wheeze. Breathing is nonlabored. Abdomen: Soft, nontender, nondistended. Extremities: No lower extremity edema. Psych: Alert and oriented. Procedures None Urinary Catheter: No Vascular Central Line Catheter: No A/P Problem List: (1) COPD exacerbation ICD Code: J44.1 - Chronic obstructive pulmonary disease with (acute) exacerbation Status: Acute (2) Dysphagia ICD Code: R13.10 - Dysphagia, unspecified (3) Leukocytosis ICD Code: D72.829 - Elevated white blood cell count, unspecified Status: Acute (4) Hypertension ICD Code: I10 - Hypertension Status: Acute Assessment and Plan 1. COPD exacerbation: Continue bronchodilators, supplemental oxygen. 2. Dysphagia: Patient has reported history of esophageal stricture. Appreciate GI recommendations. Planning for EGD with possible dilatation today. 3. Sleep apnea: Home CPAP as needed. 4. Hypertension: Controlled. 5. Leukocytosis: Secondary to COPD exacerbation. Repeat labs are pending today. 6. DVT prophylaxis: RYAN Leon, heparin. Dusty Arango MD Dec 04, 2016 10:38
[2016-12-04 12:05] LABS: AUTOMATED NEUTROPHIL # 13.9 TH/MM3 (1.8-7.7); BASOPHIL # 0.2 TH/MM3 (0-0.2); BASOPHIL % 0.9 % (0.0-2.0); EOSINOPHIL # 0.2 TH/MM3 (0-0.4); EOSINOPHIL % 0.8 % (0.0-4.0); HEMATOCRIT 36.9 % (39.0-51.0); HEMO FLAGS DIFF FINAL; LYMPH % 18.9 % (9.0-44.0); LYMPHOCYTE # 3.6 TH/MM3 (1.0-4.8); MEAN CELL VOLUME 88.4 FL (80.0-100.0); MEAN CORPUSCULAR HEMOGLOBIN 28.3 PG (27.0-34.0); MONO % 6.4 % (0.0-8.0); PLATELET COUNT 290 TH/MM3 (150-450); RED BLOOD COUNT 4.17 MIL/MM3 (4.50-5.90); RED CELL DISTRIBUTION WIDTH 15.4 % (11.6-17.2); WHITE BLOOD COUNT 19.1 TH/MM3 (4.0-11.0)
[2016-12-04 12:51] LABS: BICARBONATE 27.2 MEQ/L (21.0-32.0); POTASSIUM 4.3 MEQ/L (3.5-5.1)
[2016-12-04] MEDS: HEPARIN SODIUM - SQ 10,000 UNITS/ML VIAL SQ SCH ×2 (13:14→21:34)
[2016-12-04] MEDS: ATORVASTATIN 40 MG TAB PO SCH (21:00)
[2016-12-04] MEDS: SODIUM CHLORIDE 0.9% FLUSH 10 ML FLUSH IVF PRN (21:34)
[2016-12-05] VITALS (14 sets, daily range): BP systolic 127–141; BP diastolic 67–72; PULSE 67–82; RESP 18–19; TEMP 97.9–98.6; O2SAT 94–98
[2016-12-05] MEDS: SODIUM CHLOR 0.9% 1000 ML INJ 1,000 ML IV SCH ×2 (04:11→18:08)
[2016-12-05] MEDS: LEVOTHYROXINE SODIUM 125 MCG TAB PO SCH (06:31)
[2016-12-05] MEDS: HEPARIN SODIUM - SQ 10,000 UNITS/ML VIAL SQ SCH ×3 (06:32→22:46)
[2016-12-05] MEDS: LORATADINE 10 MG TAB PO SCH (07:41)
[2016-12-05] MEDS: METOPROLOL SUCCINATE 50 MG EXTENDED RELEASE TAB PO SCH (07:41)
[2016-12-05] MEDS: FLUTICASONE PROPIONATE 50 MCG/ACT 16 GM NASAL SPRAY NASAL SCH ×2 (07:41→22:47)
[2016-12-05] MEDS: RESP: ALBUTEROL 2.5 MG/IPRATROPIUM 0.5 MG NEB (SCH) NEB ×3 (07:53→20:11)
[2016-12-05] MEDS ORDERED: PROPOFOL 200 MG/20 ML AMP IV ONE (13:08)
[2016-12-05] MEDS ORDERED: DO NOT ADM ANY ANTICOAGULANT DRUGS PRN (13:20)
--- NOTE | 2016-12-05 13:29 | GIPROC ---
[facility] [address] [facility]. [facility] [place], [address] EGD WITH DILATION PROCEDURE REPORT EXAM DATE: 12/05/2016 PATIENT NAME: Art Zavala MR#: [id number] BIRTHDATE: 1950 ATTENDING: Shira Orozco MD ORDER #: [id number] SURVEILLANCE TECHNICIAN: Hadley Girard and Tereso Waters STATUS: inpatient INDICATIONS: The patient is a 66 yr old male here for an EGD with dilation due to dysphagia PROCEDURE PERFORMED: EGD w/ biopsy EGD w/ dilation of esophagus via guidewire MEDICATIONS: None and Per Anesthesia. TOPICAL ANESTHETIC: none CONSENT: The patient understands the risks and benefits of the procedure and understands that these risks include, but are not limited to: sedation, allergic reaction, infection, perforation and/or bleeding. Alternative means of evaluation and treatment include, among others: physical exam, x-rays, and/or surgical intervention. The patient elects to proceed with this endoscopic procedure. medical equipment was checked for proper function. Hand hygiene and appropriate measures for infection prevention was taken. After the risks, benefits and alternatives of the procedure were thoroughly explained, Informed consent was verified, confirmed and timeout was successfully executed by the treatment team. The patient was anesthetized with topical anesthesia and the Pentax [id number] endoscope was introduced through the mouth and advanced to the second portion of the duodenum. The instrument was slowly withdrawn as the mucosa was fully examined. Duodenitis, superficial ulcers gastritis antrum-biopsy esophagitis distal esophagus /stricture -biopsy. Dilation was performed at gastroesophageal junction. DILATOR: SIZE(S): RESISTANCE: HEME: APPEARANCE: Dilator: Savary over guidewire Size(s): 14,16 COMMENT: Retroflexed views revealed a hiatal hernia ADVERSE EVENTS: There were no complications. IMPRESSIONS: 1. Duodenitis, superficial ulcers gastritis antrum-biopsy esophagitis distal esophagus /stricture -biopsy 2. Retroflexed views revealed a hiatal hernia RECOMMENDATIONS: 1. Await biopsy results. Biopsy results will not be ready for 7-10 days. If you don't hear from us in two weeks, call our office for biopsy results. 2. Anti-reflux regimen 3. Continue PPI 4. Dilatations PRN REPEAT EXAM: EGD pending biopsy results Shira Orozco MD eSigned: Shira Orozco MD 12/05/2016 1:29 PM cc: PATIENT NAME: Art Zavala MR#: [id number]
[2016-12-05 15:02] LABS: AUTOMATED NEUTROPHIL # 10.5 TH/MM3 (1.8-7.7); BASOPHIL # 0.1 TH/MM3 (0-0.2); EOSINOPHIL # 0.3 TH/MM3 (0-0.4); EOSINOPHIL % 2.2 % (0.0-4.0); HEMATOCRIT 38.5 % (39.0-51.0); HEMO FLAGS DIFF FINAL; LYMPH % 22.1 % (9.0-44.0); LYMPHOCYTE # 3.4 TH/MM3 (1.0-4.8); MEAN CELL VOLUME 88.8 FL (80.0-100.0); MEAN CORPUSCULAR HEMOGLOBIN 28.5 PG (27.0-34.0); MEAN CORPUSCULAR HGB CONC 32.1 % (32.0-36.0); MONO % 5.6 % (0.0-8.0); NEUT % 69.1 % (16.0-70.0); PLATELET COUNT 255 TH/MM3 (150-450); RED BLOOD COUNT 4.34 MIL/MM3 (4.50-5.90); RED CELL DISTRIBUTION WIDTH 15.6 % (11.6-17.2); WHITE BLOOD COUNT 15.2 TH/MM3 (4.0-11.0)
[2016-12-05] MEDS ORDERED: HYDROmorphone HCL PF 1 MG/ML VIAL IV PUSH ONE (15:15)
--- NOTE | 2016-12-05 15:33 | HHI.PR ---
Subjective Remarks Follow-ups for nausea and shortness of breath. Patient seen and examined. Patient reports awaiting EGD procedure and questioning when it will occur. Patient voiced being hungry as he has not eaten for 2 days. Patient stated that he could not swallow as "the flap in the back of my throat gets closes up and I can't swollow". Patient denied shortness of breath as he was on nasal cannula at 2 L of oxygen delivered. Patient denied fever, cough, nausea, diarrhea, abdominal/chest pain. Patient noted having episode of emesis when he tried to eat a hamburger yesterday and "it came back up". No other complaints by patient. Objective Vitals Vital Signs Date Time Temp Pulse Resp B/P (MAP) Pulse Ox O2 Delivery O2 Flow Rate FiO2 12/05/16 14:52 98.0 67 19 138/68 (91) 96 12/05/16 13:50 69 16 114/62 (79) 97 Nasal Cannula 2 12/05/16 13:42 68 16 137/74 (95) 92 Nasal Cannula 2 12/05/16 13:30 98.1 81 16 123/60 (81) 92 Nasal Cannula 2 12/05/16 12:39 97.5 68 17 143/71 (95) 97 12/05/16 12:08 68 12/05/16 11:18 98.6 67 19 127/68 (87) 96 12/05/16 07:55 98 Nasal Cannula 2.00 12/05/16 07:12 98.3 76 18 131/68 (89) 97 12/05/16 04:00 75 12/05/16 03:43 97.9 72 18 141/72 (95) 94 12/05/16 00:05 74 12/04/16 23:41 98.0 69 19 146/72 (96) 97 12/04/16 21:19 98 Nasal Cannula 2.00 12/04/16 20:50 98.2 67 18 150/73 (98) 98 12/04/16 16:21 97.8 80 20 138/60 (86) 96 12/04/16 16:21 98.6 I/O 12/04/16 12/04/16 12/04/16 12/05/16 12/05/16 12/05/16 06:59 14:59 22:59 06:59 14:59 22:59 Intake Total 480 ml Output Total 850 ml Balance -370 ml Intake Oral 480 ml Output Urine Total 850 ml Result Diagram: 12/05/16 1435 12/04/16 1138 Imaging Last Impressions Chest X-Ray 12/03/16 0722 Signed Impressions: Service Date/Time: Saturday, December 03, 2016 07:44 - CONCLUSION: No acute disease. Mild bowel distention. There is no free air. Rodger Almanzar MD FACR Objective Remarks GENERAL: Patient encountered laying in bed, resting, NAD. SKIN: Warm and dry. HEAD: Normocephalic. EYES: No scleral icterus. No injection or drainage. NECK: Supple, trachea midline. No lymphadenopathy. CARDIOVASCULAR: Regular rate and rhythm without murmurs, gallops, or rubs. RESPIRATORY: Breath sounds equal bilaterally. No wheezes rhonchi or crackles. No accessory muscle use. GASTROINTESTINAL: Abdomen soft, non-tender, nondistended. MUSCULOSKELETAL: No cyanosis, or edema. PSYCHIATRIC: Appropriate mood and affect; insight and judgment normal. Patient was pleasant and cooperative. Procedures None Medications and IVs Current Medications Medications (Trade) Dose Ordered Sig/Inocencia Route Start Time Stop Time Status Last Admin (NS Flush) 2 ml UNSCH PRN IVF 12/03/16 07:30 12/04/16 21:34 Sodium Chloride 1,000 ml @ 70 mls/hr [id number] IV 12/03/16 10:00 12/05/16 04:11 (Zofran Inj) 4 mg Q6H PRN IVP 12/03/16 09:15 12/04/16 21:34 (Narcan Inj) 0.4 mg UNSCH PRN IV 12/03/16 09:15 (Milk Of Magnesia Liq) 30 ml Q12H PRN PO 12/03/16 09:15 (Senokot) 17.2 mg Q12H PRN PO 12/03/16 09:15 (Dulcolax Supp) 10 mg DAILY PRN RECTAL 12/03/16 09:15 (Lactulose Liq) 30 ml DAILY PRN PO 12/03/16 09:15 (Duoneb Neb) 1 ampule Q6HR WHILE AWAKE NEB NEB 12/03/16 20:00 12/05/16 07:53 (Duoneb Neb) 1 ampule Q4HR NEB PRN NEB 12/03/16 14:45 12/04/16 00:22 (Lipitor) 40 mg HS PO 12/03/16 21:00 12/03/16 21:12 (Synthroid) 125 mcg DAILY@0600 PO 12/04/16 06:00 12/05/16 06:31 (Claritin) 10 mg DAILY PO 12/04/16 09:00 12/05/16 07:41 (Toprol Xl) 100 mg DAILY PO 12/04/16 09:00 12/05/16 07:41 (Flonase Tye Spr) 1 spray BID NASAL 12/03/16 21:00 12/05/16 07:41 (Robitussin Liq) 200 mg Q4H PRN PO 12/03/16 20:45 12/03/16 21:13 (Heparin Inj) 5,000 units Q8HR SQ 12/04/16 14:00 12/05/16 06:32 Miscellaneous Information ALL NURSING DEPARTME... UNSCH PRN .XX 12/05/16 13:20 12/06/16 13:19 (Dilaudid Pf Inj) 1 mg ONCE ONCE IV PUSH 12/05/16 15:15 12/05/16 15:16 UNV Urinary Catheter: No A/P Problem List: (1) COPD exacerbation ICD Code: J44.1 - Chronic obstructive pulmonary disease with (acute) exacerbation Status: Acute (2) Dysphagia ICD Code: R13.10 - Dysphagia, unspecified (3) Leukocytosis ICD Code: D72.829 - Elevated white blood cell count, unspecified Status: Acute (4) Hypertension ICD Code: I10 - Hypertension Status: Acute Assessment and Plan Mr. Zavala is a 66-year-old male patient with a known medical history of COPD, hypertension, sleep apnea, and history of esophageal strictures who presented to the ED with complaints of trouble swallowing last evening. He states that when he was drinking a milkshake last evening when he "felt his lungs and throat filling with fluid". States that whatever he attempted to consume he would just throw back up again. He said he had to continue sitting up due to the feeling and "nothing felt like it was staying down". Denies any recent fever , chills, chest pain, palpitations, lightheadedness, dizziness, headache, abdominal pain, diarrhea or dysuria. Esophageal stricture: EGD completed on 12/05/16. Biopsy obtained during procedure , results pending. Pain, post procedural and low back: Dilaudid 1 mg Iv x1. COPD exacerbation: Stable. Continue Duonebs and supplemental oxygen. Hypertension: Normotensive trend. Continue current regimen. COPD exacerbation Leukocytosis suspect secondary to above - CXR reviewed showing no acute disease. Mild bowel distention. No free air. - WBC 16.7 on presentation. Afebrile. BNP 28. - Duonebs given in ED. Continue duonebs scheduled and PRN. - Continue supplemental O2 to keep sats >88%. Nausea and vomiting History of esophageal strictures - Assure hydration, start on IVF NS @ 70 ml/hr. - Control nausea, Zofran PRN. Reportedly improved. - Will start on heart healthy diet, assess swallow ability. ST consulted, appreciate recommendations. - Consult placed to GI, appreciate recommendations. Sleep apnea - Home CPAP at night as needed. Hypertension, chronic: Controlled at this time. Will continue to monitor BP. DVT prophylaxis: SCDs/TEDs Case discussed with pt, RN, and Dr. Arango. Patrice Martinez Jr. Dec 05, 2016 15:33
[2016-12-05] MEDS: SODIUM CHLORIDE 0.9% FLUSH 10 ML FLUSH IVF PRN (22:46)
[2016-12-05] MEDS: ATORVASTATIN 40 MG TAB PO SCH (22:47)
[2016-12-06] VITALS (12 sets, daily range): BP systolic 132–190; BP diastolic 73–82; PULSE 61–80; RESP 17–20; TEMP 97.9–98.5; O2SAT 97–99
[2016-12-06] MEDS: guaiFENesin SOLUTION 200 MG/10 ML CUP PO PRN ×2 (00:43→08:09)
[2016-12-06 04:46] LABS: AUTOMATED NEUTROPHIL # 11.1 TH/MM3 (1.8-7.7); BASOPHIL # 0.1 TH/MM3 (0-0.2); BASOPHIL % 0.8 % (0.0-2.0); EOSINOPHIL # 0.2 TH/MM3 (0-0.4); EOSINOPHIL % 1.4 % (0.0-4.0); HEMO FLAGS DIFF FINAL; LYMPH % 19.1 % (9.0-44.0); MEAN CELL VOLUME 88.8 FL (80.0-100.0); MEAN CORPUSCULAR HEMOGLOBIN 28.9 PG (27.0-34.0); MEAN CORPUSCULAR HGB CONC 32.6 % (32.0-36.0); MONO % 6.9 % (0.0-8.0); NEUT % 71.8 % (16.0-70.0); PLATELET COUNT 230 TH/MM3 (150-450); RED BLOOD COUNT 4.28 MIL/MM3 (4.50-5.90); RED CELL DISTRIBUTION WIDTH 15.4 % (11.6-17.2); WHITE BLOOD COUNT 15.5 TH/MM3 (4.0-11.0)
[2016-12-06] MEDS: LEVOTHYROXINE SODIUM 125 MCG TAB PO SCH (06:15)
[2016-12-06] MEDS: HEPARIN SODIUM - SQ 10,000 UNITS/ML VIAL SQ SCH ×3 (06:16→23:42)
[2016-12-06] MEDS: RESP: ALBUTEROL 2.5 MG/IPRATROPIUM 0.5 MG NEB (SCH) NEB ×3 (07:14→21:05)
[2016-12-06] MEDS: LORATADINE 10 MG TAB PO SCH (08:09)
[2016-12-06] MEDS: FLUTICASONE PROPIONATE 50 MCG/ACT 16 GM NASAL SPRAY NASAL SCH ×2 (08:09→23:38)
[2016-12-06] MEDS: METOPROLOL SUCCINATE 50 MG EXTENDED RELEASE TAB PO SCH (08:09)
[2016-12-06] MEDS: SODIUM CHLOR 0.9% 1000 ML INJ 1,000 ML IV SCH ×2 (08:10→23:39)
[2016-12-06] MEDS: ACETAMINOPHEN 325MG/HYDROcodone 7.5MG/15ML UDC PO PRN ×3 (10:44→23:46)
--- NOTE | 2016-12-06 16:26 | HHI.GIFU ---
GI Follow-up Note Consult Follow-up Subjective: Late entry.Patietn seen in am Patient laying in bed comfortably, had sore throat after procedure .No nausea, vomiting, abdominal pain.some cough Objective: PHYSICAL EXAMINATION: Vitals signs stable No fever Vital Signs Date Time Temp Pulse Resp B/P (MAP) Pulse Ox O2 Delivery O2 Flow Rate FiO2 12/06/16 15:37 98.5 61 20 133/74 (93) 97 12/06/16 15:37 98.5 74 20 133/74 (93) 97 12/06/16 15:29 70 12/06/16 12:53 70 12/06/16 11:56 20 12/06/16 08:44 80 146/81 (102) HEENT: Pupils round and reactive to light; normocephalic; atraumatic; no jaundice. Throat is clear. NECK: Neck is supple, no JVD, no lymphadenopathy. CHEST: Chest is clear to auscultation and percussion. CARDIAC: Regular rate and rhythm with no murmur gallop or rubs. ABDOMEN: Soft, nondistended, nontender; no hepatosplenomegaly; bowel sounds are present in all four quadrants. EXTREMITIES: No clubbing, cyanosis, or edema. SKIN: Normal; no rash; no jaundice. DATABASE MODELER: No focal deficits; alert and oriented times three. Available Data (labs, X- Rays, Procedues) : Laboratory Tests Test 12/05/16 14:35 12/06/16 04:20 White Blood Count 15.2 TH/MM3 15.5 TH/MM3 Red Blood Count 4.34 MIL/MM3 4.28 MIL/MM3 Hemoglobin 12.4 GM/DL 12.4 GM/DL Hematocrit 38.5 % 38.0 % Mean Corpuscular Volume 88.8 FL 88.8 FL Mean Corpuscular Hemoglobin 28.5 PG 28.9 PG Mean Corpuscular Hemoglobin Concent 32.1 % 32.6 % Red Cell Distribution Width 15.6 % 15.4 % Platelet Count 255 TH/MM3 230 TH/MM3 Mean Platelet Volume 8.3 FL 8.8 FL Neutrophils (%) (Auto) 69.1 % 71.8 % Lymphocytes (%) (Auto) 22.1 % 19.1 % Monocytes (%) (Auto) 5.6 % 6.9 % Eosinophils (%) (Auto) 2.2 % 1.4 % Basophils (%) (Auto) 1.0 % 0.8 % Neutrophils # (Auto) 10.5 TH/MM3 11.1 TH/MM3 Lymphocytes # (Auto) 3.4 TH/MM3 3.0 TH/MM3 Monocytes # (Auto) 0.9 TH/MM3 1.1 TH/MM3 Eosinophils # (Auto) 0.3 TH/MM3 0.2 TH/MM3 Basophils # (Auto) 0.1 TH/MM3 0.1 TH/MM3 CBC Comment DIFF FINAL DIFF FINAL Differential Comment ASSESSMENT/PLAN: Dysphagia -s/p esophageal stricture s/p dilatation multiple duodenla ulcers most likely secondary NSAID use Recommendations ppi avoid NSAIDS egd/dil in 6-8 weeks soft diet fu biopsy ok to dc home from gi point call as needed It was a pleasure seeing Art Zavala. Thank you for this consult. Entered by: Shira Powell MD Dec 06, 2016 16:26
--- NOTE | 2016-12-06 18:34 | HHI.PR ---
Subjective Remarks Follow-ups for nausea and shortness of breath. Patient seen and examined. Pt reported sore throat post procedure. Back pain reportedly exacerbated by laying in bed. Pt stated he has been able to eat "some." Reported having "scrambled eggs" this morning. Pt questioned what he could eat due to pain/discomfort. Patient denied shortness of breath as he was on nasal cannula at 2 L of oxygen delivered. Patient denied fever, cough, nausea, diarrhea, abdominal/chest pain. No other complaints by patient. Objective Vitals Vital Signs Date Time Temp Pulse Resp B/P (MAP) Pulse Ox O2 Delivery O2 Flow Rate FiO2 12/06/16 17:29 22 12/06/16 15:37 98.5 61 20 133/74 (93) 97 12/06/16 15:37 98.5 74 20 133/74 (93) 97 12/06/16 15:29 70 12/06/16 12:53 70 12/06/16 08:44 80 146/81 (102) 12/06/16 07:58 98.3 78 20 190/82 (118) 97 12/06/16 07:14 99 Nasal Cannula 1.00 12/06/16 04:52 98.5 70 18 132/80 (97) 98 12/06/16 04:06 70 12/05/16 23:53 82 12/05/16 23:47 98.1 76 18 131/68 (89) 97 12/05/16 21:50 74 12/05/16 21:31 98.4 70 18 138/67 (90) 97 12/05/16 20:12 96 Nasal Cannula 2.00 I/O 12/05/16 12/05/16 12/05/16 12/06/16 12/06/16 12/06/16 07:00 15:00 23:00 07:00 15:00 23:00 Intake Total 500 ml 240 ml Output Total 600 ml Balance -100 ml 240 ml Intake Oral 500 ml 240 ml Output Urine Total 600 ml Result Diagram: 12/06/16 0420 12/04/16 1138 Objective Remarks GENERAL: Patient encountered laying in bed, resting, NAD. SKIN: Warm and dry. HEAD: Normocephalic. EYES: No scleral icterus. No injection or drainage. NECK: Supple, trachea midline. No lymphadenopathy. CARDIOVASCULAR: Regular rate and rhythm without murmurs, gallops, or rubs. RESPIRATORY: Breath sounds equal bilaterally. No wheezes rhonchi or crackles. No accessory muscle use. GASTROINTESTINAL: Abdomen soft, non-tender, nondistended. MUSCULOSKELETAL: No cyanosis, or edema. PSYCHIATRIC: Appropriate mood and affect; insight and judgment normal. Patient was pleasant and cooperative. Procedures None Medications and IVs Current Medications Medications (Trade) Dose Ordered Sig/Inocencia Route Start Time Stop Time Status Last Admin (NS Flush) 2 ml UNSCH PRN IVF 12/03/16 07:30 12/05/16 22:46 Sodium Chloride 1,000 ml @ 70 mls/hr [id number] IV 12/03/16 10:00 12/06/16 08:10 (Zofran Inj) 4 mg Q6H PRN IVP 12/03/16 09:15 12/04/16 21:34 (Narcan Inj) 0.4 mg UNSCH PRN IV 12/03/16 09:15 (Milk Of Magnesia Liq) 30 ml Q12H PRN PO 12/03/16 09:15 (Senokot) 17.2 mg Q12H PRN PO 12/03/16 09:15 (Dulcolax Supp) 10 mg DAILY PRN RECTAL 12/03/16 09:15 (Lactulose Liq) 30 ml DAILY PRN PO 12/03/16 09:15 (Duoneb Neb) 1 ampule Q6HR WHILE AWAKE NEB NEB 12/03/16 20:00 12/06/16 13:17 (Duoneb Neb) 1 ampule Q4HR NEB PRN NEB 12/03/16 14:45 12/04/16 00:22 (Lipitor) 40 mg HS PO 12/03/16 21:00 12/05/16 22:47 (Synthroid) 125 mcg DAILY@0600 PO 12/04/16 06:00 12/06/16 06:15 (Claritin) 10 mg DAILY PO 12/04/16 09:00 12/06/16 08:09 (Toprol Xl) 100 mg DAILY PO 12/04/16 09:00 12/06/16 08:09 (Flonase Tye Spr) 1 spray BID NASAL 12/03/16 21:00 12/06/16 08:09 (Robitussin Liq) 200 mg Q4H PRN PO 12/03/16 20:45 12/06/16 08:09 (Heparin Inj) 5,000 units Q8HR SQ 12/04/16 14:00 12/06/16 06:16 (Hycet 325-7.5 Mg Liq) 15 ml Q6H PRN PO 12/06/16 09:30 12/06/16 16:53 A/P Problem List: (1) COPD exacerbation ICD Code: J44.1 - Chronic obstructive pulmonary disease with (acute) exacerbation Status: Acute (2) Dysphagia ICD Code: R13.10 - Dysphagia, unspecified (3) Leukocytosis ICD Code: D72.829 - Elevated white blood cell count, unspecified Status: Acute (4) Hypertension ICD Code: I10 - Hypertension Status: Acute Assessment and Plan Mr. Zavala is a 66-year-old male patient with a known medical history of COPD, hypertension, sleep apnea, and history of esophageal strictures who presented to the ED with complaints of trouble swallowing last evening. He states that when he was drinking a milkshake last evening when he "felt his lungs and throat filling with fluid". States that whatever he attempted to consume he would just throw back up again. He said he had to continue sitting up due to the feeling and "nothing felt like it was staying down". Denies any recent fever , chills, chest pain, palpitations, lightheadedness, dizziness, headache, abdominal pain, diarrhea or dysuria. Esophageal stricture: EGD completed on 12/05/16. Biopsy obtained during procedure , results pending. Foil Stamp Operator consulted to assist with post procedural diet. Pain , post procedural and low back: Liquid hydrocodone/acetaminophen 5/325 ordered. COPD exacerbation: Stable. Continue Duonebs and supplemental oxygen. Hypertension: Normotensive trend. Continue current regimen. COPD exacerbation Leukocytosis suspect secondary to above - CXR reviewed showing no acute disease. Mild bowel distention. No free air. - WBC 16.7 on presentation. Afebrile. BNP 28. - Duonebs given in ED. Continue duonebs scheduled and PRN. - Continue supplemental O2 to keep sats >88%. Nausea and vomiting History of esophageal strictures - Assure hydration, start on IVF NS @ 70 ml/hr. - Control nausea, Zofran PRN. Reportedly improved. - Will start on heart healthy diet, assess swallow ability. ST consulted, appreciate recommendations. - Consult placed to GI, appreciate recommendations. Sleep apnea - Home CPAP at night as needed. Hypertension, chronic: Controlled at this time. Will continue to monitor BP. DVT prophylaxis: SCDs/TEDs Case discussed with pt, RN, and Dr. Arango. Patrice Martinez Jr. Dec 06, 2016 18:34
[2016-12-06] MEDS: ATORVASTATIN 40 MG TAB PO SCH (23:40)
[2016-12-07] VITALS (13 sets, daily range): BP systolic 123–138; BP diastolic 64–77; PULSE 58–93; RESP 16–18; TEMP 97.2–98.5; O2SAT 96–99
[2016-12-07] MEDS: LEVOTHYROXINE SODIUM 125 MCG TAB PO SCH (06:01)
[2016-12-07] MEDS: HEPARIN SODIUM - SQ 10,000 UNITS/ML VIAL SQ SCH ×3 (06:03→21:10)
[2016-12-07] MEDS: ACETAMINOPHEN 325MG/HYDROcodone 7.5MG/15ML UDC PO PRN ×3 (06:12→21:19)
[2016-12-07] MEDS: RESP: ALBUTEROL 2.5 MG/IPRATROPIUM 0.5 MG NEB (SCH) NEB ×2 (07:48→16:05)
[2016-12-07] MEDS: FLUTICASONE PROPIONATE 50 MCG/ACT 16 GM NASAL SPRAY NASAL SCH ×2 (09:18→21:08)
[2016-12-07] MEDS: LORATADINE 10 MG TAB PO SCH (09:19)
[2016-12-07] MEDS: METOPROLOL SUCCINATE 50 MG EXTENDED RELEASE TAB PO SCH (09:19)
[2016-12-07 10:43] LABS: BASOPHIL # 0.1 TH/MM3 (0-0.2); BASOPHIL % 0.4 % (0.0-2.0); EOSINOPHIL # 0.5 TH/MM3 (0-0.4); EOSINOPHIL % 3.8 % (0.0-4.0); HEMATOCRIT 38.5 % (39.0-51.0); HEMO FLAGS DIFF FINAL; LYMPH % 28.5 % (9.0-44.0); LYMPHOCYTE # 4.1 TH/MM3 (1.0-4.8); MEAN CELL VOLUME 88.8 FL (80.0-100.0); MEAN CORPUSCULAR HEMOGLOBIN 28.5 PG (27.0-34.0); MEAN CORPUSCULAR HGB CONC 32.2 % (32.0-36.0); MONO % 4.3 % (0.0-8.0); PLATELET COUNT 212 TH/MM3 (150-450); RED BLOOD COUNT 4.34 MIL/MM3 (4.50-5.90); RED CELL DISTRIBUTION WIDTH 15.4 % (11.6-17.2); WHITE BLOOD COUNT 14.3 TH/MM3 (4.0-11.0)
[2016-12-07 11:05] LABS: BICARBONATE 26.1 MEQ/L (21.0-32.0); MAGNESIUM 1.5 MG/DL (1.5-2.5); POTASSIUM 3.7 MEQ/L (3.5-5.1)
[2016-12-07] MEDS: SODIUM CHLOR 0.9% 1000 ML INJ 1,000 ML IV SCH (15:47)
[2016-12-07 16:08] LABS: BLOOD, URINE NEG (NEG); GLUCOSE,URINE NEG (NEG); KETONE, URINE NEG (NEG); NITRITE,URINE NEG (NEG); PH, URINE 6.5 (5.0-8.5); URINE COLOR LIGHT-YELLOW (YELLW/STRAW)
[2016-12-07 16:12] LABS: COMMENT (UR) CULT NOT INDICATED; CULTURE IF INDICATED CULT NOT INDICATED
--- NOTE | 2016-12-07 16:18 | HHI.PR ---
Subjective Remarks Follow-up on patient with COPD exacerbation and esophageal stricture. Patient seen and examined today. Patient able to tolerate breakfast and states he did not eat lunch due to having back pain. He continues to report some throat discomfort. He states he is "scared of eating". He also reports shortness of breath. He denies any associated chest pain. Denies any fever or chills. Denies any nausea, vomiting or abdominal pain. Objective Vitals Vital Signs Date Time Temp Pulse Resp B/P (MAP) Pulse Ox O2 Delivery O2 Flow Rate FiO2 12/07/16 15:36 98.1 67 18 126/69 (88) 97 12/07/16 13:07 67 12/07/16 11:50 97.2 65 18 131/77 (95) 97 12/07/16 08:05 98.1 73 16 138/72 (94) 96 12/07/16 07:53 98 Nasal Cannula 2.00 12/07/16 04:12 58 12/07/16 03:58 97.2 62 17 123/64 (83) 99 12/07/16 00:06 63 12/06/16 23:28 97.9 69 17 150/73 (98) 98 12/06/16 21:00 98 Nasal Cannula 2.00 12/06/16 20:58 98.4 61 18 146/75 (98) 98 12/06/16 20:00 62 12/06/16 17:29 22 I/O 12/06/16 12/06/16 12/06/16 12/07/16 12/07/16 12/07/16 07:00 15:00 23:00 07:00 15:00 23:00 Intake Total 240 ml 750 ml 1000 ml Output Total 500 ml Balance 240 ml 250 ml 1000 ml Intake Oral 240 ml 750 ml IV Total 1000 ml Output Urine Total 500 ml Result Diagram: 12/07/16 0933 12/07/16 0933 Imaging Last Impressions Chest X-Ray 12/03/16721 Signed Impressions: Service Date/Time: Saturday, December 03, 2016 07:44 - CONCLUSION: No acute disease. Mild bowel distention. There is no free air. Rodger Almanzar MD FACR Objective Remarks GENERAL: Well-nourished, well-developed patient in NAD. Awake and alert. Wearing 2L NC. SKIN: Warm and dry. No rash. HEAD: Normocephalic. Atraumatic. EYES: EOMI. No scleral icterus. No injection or drainage. ENT: No nasal bleeding or discharge. Mucous membranes pink and moist. NECK: Supple. Trachea midline. CARDIOVASCULAR: Regular rate and rhythm. S1, S2 noted. No murmur appreciated. RESPIRATORY: No accessory muscle use. Diminished but clear to auscultation. Breath sounds equal bilaterally. GASTROINTESTINAL: Abdomen soft, non-tender, nondistended. Normoactive bowel sounds x4. MUSCULOSKELETAL: No obvious deformities. Extremities without clubbing, cyanosis , or edema. NEUROLOGICAL: Awake and alert. Able to move all extremities. Normal speech. Procedures EGD with biopsy, EGD with dilation of esophagus 12/05/16 Medications and IVs Current Medications Medications (Trade) Dose Ordered Sig/Inocencia Route Start Time Stop Time Status Last Admin (NS Flush) 2 ml UNSCH PRN IVF 12/03/16 07:30 12/05/16 22:46 Sodium Chloride 1,000 ml @ 70 mls/hr [id number] IV 12/03/16 10:00 12/07/16 15:47 (Zofran Inj) 4 mg Q6H PRN IVP 12/03/16 09:15 12/04/16 21:34 (Narcan Inj) 0.4 mg UNSCH PRN IV 12/03/16 09:15 (Milk Of Magnesia Liq) 30 ml Q12H PRN PO 12/03/16 09:15 (Senokot) 17.2 mg Q12H PRN PO 12/03/16 09:15 (Dulcolax Supp) 10 mg DAILY PRN RECTAL 12/03/16 09:15 (Lactulose Liq) 30 ml DAILY PRN PO 12/03/16 09:15 (Duoneb Neb) 1 ampule Q6HR WHILE AWAKE NEB NEB 12/03/16 20:00 12/07/16 07:48 (Duoneb Neb) 1 ampule Q4HR NEB PRN NEB 12/03/16 14:45 12/04/16 00:22 (Lipitor) 40 mg HS PO 12/03/16 21:00 12/06/16 23:40 (Synthroid) 125 mcg DAILY@0600 PO 12/04/16 06:00 12/07/16 06:01 (Claritin) 10 mg DAILY PO 12/04/16 09:00 12/07/16 09:19 (Toprol Xl) 100 mg DAILY PO 12/04/16 09:00 12/07/16 09:19 (Flonase Tye Spr) 1 spray BID NASAL 12/03/16 21:00 12/07/16 09:18 (Robitussin Liq) 200 mg Q4H PRN PO 12/03/16 20:45 12/06/16 08:09 (Heparin Inj) 5,000 units Q8HR SQ 12/04/16 14:00 12/07/16 15:46 (Hycet 325-7.5 Mg Liq) 15 ml Q6H PRN PO 12/06/16 09:30 12/07/16 12:47 A/P Problem List: (1) COPD exacerbation ICD Code: J44.1 - Chronic obstructive pulmonary disease with (acute) exacerbation Status: Acute (2) Dysphagia ICD Code: R13.10 - Dysphagia, unspecified (3) Leukocytosis ICD Code: D72.829 - Elevated white blood cell count, unspecified Status: Acute (4) Hypertension ICD Code: I10 - Hypertension Status: Acute Assessment and Plan Mr. Zavala is a 66-year-old male patient with a known medical history of COPD, hypertension, sleep apnea, and history of esophageal strictures who presented to the ED with complaints of trouble swallowing last evening. He states that when he was drinking a milkshake last evening when he "felt his lungs and throat filling with fluid". States that whatever he attempted to consume he would just throw back up again. He said he had to continue sitting up due to the feeling and "nothing felt like it was staying down". Denies any recent fever , chills, chest pain, palpitations, lightheadedness, dizziness, headache, abdominal pain, diarrhea or dysuria. COPD exacerbation - complaining of SOB - continue Duonebs - CXR 12/03 showed no acute disease. Repeat CXR - Obtain BNP - Continue supplemental O2 to keep sats >88%. - Home oxygen walk test - PT eval/tx - recommends home with home health PT Leukocytosis - Uncertain etiology - Slight trend down but still significant at 14.3. Patient is afebrile. - CXR 12/03/16 reviewed showing no acute disease. Mild bowel distention. No free air. Repeat CXR ordered. - UA ordered - Repeat lab in a.m. to monitor trend Nausea and vomiting History of esophageal strictures - Control nausea, Zofran PRN. Reportedly improved. - GI following. Appreciate recommendations. S/p EGD and esophageal dilation 12/05/16 revealing duodenitis, superficial ulcers gastritis antrum, esophagitis distal esophagus. Continue PPI. Avoid NSAIDS. EGD/Dil in 6-8 weeks. Ok to d/c home from GI standpoint. Tolerating soft diet. Sleep apnea - Home CPAP at night as needed. Hypertension, chronic: - Normotensive - Continue on Toprol-XL 100 mg daily - Will continue to monitor BP Hyponatremia - mild - encourage po intake Anemia, normochromic normocytic - mild, stable Hypothyroidism - Patient currently on levothyroxine 125 g daily - TSH slightly elevated 6.390 - Recommend patient follow-up with PCP as outpatient to retest in 6-8 weeks' time. DVT prophylaxis: SCDs/TEDs. Heparin sq Case discussed with patient, nursing staff and Dr. Arango. Molly Yoon Dec 07, 2016 16:18
--- NOTE | 2016-12-07 16:21 | RADRPT ---
EXAM DATE/TIME: 12/07/2016 15:52 [facility] COMPARISON: CHEST SINGLE AP, April 01, 2016, 14:42. INDICATIONS : Shortness of breath. MEDICAL HISTORY : None. SURGICAL HISTORY : Coronary artery stent. ENCOUNTER: Subsequent ACUITY: 4 - 6 days PAIN SCORE: 0/10 LOCATION: Bilateral chest FINDINGS: The heart is stable. Bibasilar atelectasis is noted. A small right pleural effusion is noted. CONCLUSION: 1. Bibasilar atelectasis. 2. Small right pleural effusion. Frank Leija MD on December 07, 2016 at 16:17 Board Certified Radiologist. This report was verified electronically.
[2016-12-07] MEDS: RESP: ALBUTEROL 2.5 MG/IPRATROPIUM 0.5 MG NEB (PRN) NEB (20:10)
[2016-12-07] MEDS: ATORVASTATIN 40 MG TAB PO SCH (21:09)
[2016-12-08 00:05] VITALS: PULSE 68
[2016-12-08] MEDS: guaiFENesin SOLUTION 200 MG/10 ML CUP PO PRN ×2 (02:39→09:18)
[2016-12-08] MEDS: ACETAMINOPHEN 325MG/HYDROcodone 7.5MG/15ML UDC PO PRN ×2 (03:13→09:17)
[2016-12-08 03:50] VITALS: BP 150/70; PULSE 81; RESP 20; TEMP 98.2; O2SAT 98
[2016-12-08 04:00] VITALS: PULSE 86
[2016-12-08] MEDS: LEVOTHYROXINE SODIUM 125 MCG TAB PO SCH (06:21)
[2016-12-08] MEDS: HEPARIN SODIUM - SQ 10,000 UNITS/ML VIAL SQ SCH (06:22)
[2016-12-08 07:49] VITALS: BP 110/65; PULSE 72; RESP 18; TEMP 98.2; O2SAT 97
[2016-12-08] MEDS: RESP: ALBUTEROL 2.5 MG/IPRATROPIUM 0.5 MG NEB (PRN) NEB (08:05)
[2016-12-08 08:06] VITALS: O2SAT 95
[2016-12-08 09:10] VITALS: PULSE 78
[2016-12-08] MEDS: METOPROLOL SUCCINATE 50 MG EXTENDED RELEASE TAB PO SCH (09:17)
[2016-12-08] MEDS: FLUTICASONE PROPIONATE 50 MCG/ACT 16 GM NASAL SPRAY NASAL SCH (09:17)
[2016-12-08] MEDS: LORATADINE 10 MG TAB PO SCH (09:17)
--- NOTE | 2016-12-08 09:21 | HHI.FF ---
Face to Face Verification Diagnosis: (1) Esophageal stricture (2) COPD exacerbation (3) Leukocytosis (4) Dysphagia (5) Nausea & vomiting (6) Hypertension Physical Therapy Order: Evaluate and Treat, Improve ambulation, Strength and gait training I have seen patient Art Zavala on 12/08/16. My clinical findings support the need for the requested home health care services because: Ltd mobility - disease progression Patient has SOB Deconditioned w/ increased weakness High risk of falls I certify that my clinical findings support that this patient is homebound because: Hx COPD- exertion dyspnea/weakness Unsteady gait/balance Unsafe to leave home unassisted Molly Yoon Dec 08, 2016 09:21
[2016-12-08] MEDS ORDERED: PROT40TA PO (09:28)
[2016-12-08] MEDS ORDERED: LEVO25TA4 PO (09:28)
[2016-12-08] MEDS ORDERED: ATOR40TA16 PO (09:28)
[2016-12-08] MEDS ORDERED: METO100T9 PO (09:28)
[2016-12-08] MEDS ORDERED: PANTOPRAZOLE SOD 40 MG DELAYED RELEASE TAB PO SCH (09:30)
--- NOTE | 2016-12-08 09:38 | HHI.DS ---
Discharge Summary Admission Date Dec 03, 2016 at 09:09 Discharge Date: Dec 08, 2016 Admitting Diagnosis copd exacerbation, nausea vomiting, esophageal strictures, questiona (1) Gastritis and duodenitis ICD Code: K29.90 - Gastroduodenitis, unspecified, without bleeding (2) Esophageal stricture ICD Code: K22.2 - Esophageal obstruction (3) Esophagitis determined by endoscopy ICD Code: K20.9 - Esophagitis, unspecified (4) COPD exacerbation ICD Code: J44.1 - Chronic obstructive pulmonary disease with (acute) exacerbation Status: Acute (5) Dysphagia ICD Code: R13.10 - Dysphagia, unspecified (6) Hiatal hernia ICD Code: K44.9 - Diaphragmatic hernia without obstruction or gangrene (7) Nausea & vomiting ICD Code: R11.2 - Nausea & vomiting Status: Acute (8) Sleep apnea ICD Code: G47.30 - Sleep apnea, unspecified (9) Leukocytosis ICD Code: D72.829 - Elevated white blood cell count, unspecified Status: Acute (10) Hypertension ICD Code: I10 - Hypertension Status: Acute (11) Hyponatremia ICD Code: E87.1 - Hyponatremia Status: Acute Procedures EGD with biopsy, EGD with dilation of esophagus 12/05/16 [place], [place] GI PROCEDURE REPORT [facility] [address] [facility]. [facility], [address] EGD WITH DILATION PROCEDURE REPORT EXAM DATE: 12/05/2016 PATIENT NAME: Art Zavala MR#: [id number] BIRTHDATE: 1950 ATTENDING: Shira Orozco MD ORDER #: [id number] WAREHOUSE DIRECTOR: Hadley Girard and Tereso Waters STATUS: inpatient INDICATIONS: The patient is a 66 yr old male here for an EGD with dilation due to dysphagia PROCEDURE PERFORMED: EGD w/ biopsy EGD w/ dilation of esophagus via guidewire MEDICATIONS: None and Per Anesthesia. TOPICAL ANESTHETIC: none CONSENT: The patient understands the risks and benefits of the procedure and understands that these risks include, but are not limited to: sedation, allergic reaction, infection, perforation and/or bleeding. Alternative means of evaluation and treatment include, among others: physical exam, x-rays, and/or surgical intervention. The patient elects to proceed with this endoscopic procedure. medical equipment was checked for proper function. Hand hygiene and appropriate measures for infection prevention was taken. After the risks, benefits and alternatives of the procedure were thoroughly explained, Informed consent was verified, confirmed and timeout was successfully executed by the treatment team. The patient was anesthetized with topical anesthesia and the [facility] [facility] [id number] endoscope was introduced through the mouth and advanced to the second portion of the duodenum. The instrument was slowly withdrawn as the mucosa was fully examined. Duodenitis, superficial ulcers gastritis antrum-biopsy esophagitis distal esophagus /stricture -biopsy. Dilation was performed at gastroesophageal junction. DILATOR: SIZE(S): RESISTANCE: HEME: APPEARANCE: Dilator: Savary over guidewire Size(s): 14,16 COMMENT: Retroflexed views revealed a hiatal hernia ADVERSE EVENTS: There were no complications. IMPRESSIONS: 1. Duodenitis, superficial ulcers gastritis antrum-biopsy esophagitis distal esophagus /stricture -biopsy 2. Retroflexed views revealed a hiatal hernia RECOMMENDATIONS: 1. Await biopsy results. Biopsy results will not be ready for 7-10 days. If you don't hear from us in two weeks, call our office for biopsy results. 2. Anti-reflux regimen 3. Continue PPI 4. Dilatations PRN REPEAT EXAM: EGD pending biopsy results Shira Orozco MD eSigned: Shira Orozco MD 12/05/2016 1:29 PM Brief History - From Admission Written by Stephanie Gonzáles, acting as scribe for Dr. Arango on 12/03/16 at 1201. Mr. Zavala is a 66-year-old male patient with a known medical history of COPD, hypertension, sleep apnea, and history of esophageal strictures who presented to the ED with complaints of trouble swallowing last evening. He states that when he was drinking a milkshake last evening when he "felt his lungs and throat filling with fluid". States that whatever he attempted to consume he would just throw back up again. He said he had to continue sitting up due to the feeling and "nothing felt like it was staying down". Patient states this is his fourth presentation to the ED in two months for a mixture of bronchial infections, pneumonia, severe coughing and rib fractures due to coughing. He reports a recent admission to [facility] recently for pneumonia and COPD exacerbation. Denies any recent fever, chills, chest pain, palpitations, lightheadedness, dizziness, headache, abdominal pain, diarrhea or dysuria. Reportedly patient has had esophageal strictures x 2 this year. Denies any hematozemia. CBC/BMP: 12/07/16 0933 12/07/16 0933 Significant Findings Laboratory Tests Test 12/05/16 14:35 12/06/16 04:20 12/07/16 09:33 12/07/16 15:29 White Blood Count 15.2 TH/MM3 (4.0-11.0) 15.5 TH/MM3 (4.0-11.0) 14.3 TH/MM3 (4.0-11.0) Red Blood Count 4.34 MIL/MM3 (4.50-5.90) 4.28 MIL/MM3 (4.50-5.90) 4.34 MIL/MM3 (4.50-5.90) Hemoglobin 12.4 GM/DL (13.0-17.0) 12.4 GM/DL (13.0-17.0) 12.4 GM/DL (13.0-17.0) Hematocrit 38.5 % (39.0-51.0) 38.0 % (39.0-51.0) 38.5 % (39.0-51.0) Neutrophils # (Auto) 10.5 TH/MM3 (1.8-7.7) 11.1 TH/MM3 (1.8-7.7) 9.0 TH/MM3 (1.8-7.7) Neutrophils (%) (Auto) 71.8 % (16.0-70.0) Monocytes # (Auto) 1.1 TH/MM3 (0-0.9) Eosinophils # (Auto) 0.5 TH/MM3 (0-0.4) Blood Urea Nitrogen 5 MG/DL (7-18) Random Glucose 112 MG/DL (74-106) Sodium Level 134 MEQ/L (136-145) Estimat Glomerular Filtration Rate 86 ML/MIN (>89) Thyroid Stimulating Hormone 3rd Gen 6.390 uIU/ML (0.358-3.740) Imaging Last Impressions Chest X-Ray 12/07/16 0000 Signed Impressions: Service Date/Time: Wednesday, December 07, 2016 15:52 - CONCLUSION: 1. Bibasilar atelectasis. 2. Small right pleural effusion. Frank Leija MD PE at Discharge GENERAL: Well-nourished, well-developed patient in NAD. Awake and alert. Appears comfortable. SKIN: Warm and dry. No rash. HEAD: Normocephalic. Atraumatic. EYES: EOMI. No scleral icterus. No injection or drainage. ENT: No nasal bleeding or discharge. Mucous membranes pink and moist. NECK: Supple. Trachea midline. CARDIOVASCULAR: Regular rate and rhythm. S1, S2 noted. No murmur appreciated. RESPIRATORY: No accessory muscle use. Diminished but clear to auscultation. Breath sounds equal bilaterally. GASTROINTESTINAL: Abdomen soft, non-tender, nondistended. Normoactive bowel sounds x4. MUSCULOSKELETAL: No obvious deformities. Extremities without clubbing, cyanosis , or edema. NEUROLOGICAL: Awake and alert. Able to move all extremities. Normal speech. Pt update on day of discharge Patient seen and examined. Patient able to tolerate breakfast - witnessed 100% completion. Patient reports some throat irritation with eating. Denies any fever or chills. Denies any chest pain or SOB. Denies any N/V or abdominal pain. Discussed with nurse Bliss - no issues reported. Hospital Course Mr. Zavala is a 66-year-old male patient with a known medical history of COPD, hypertension, sleep apnea, and history of esophageal strictures who presented to the ED with complaints of trouble swallowing last evening. He states that when he was drinking a milkshake last evening when he "felt his lungs and throat filling with fluid". States that whatever he attempted to consume he would just throw back up again. He said he had to continue sitting up due to the feeling and "nothing felt like it was staying down". Denies any recent fever , chills, chest pain, palpitations, lightheadedness, dizziness, headache, abdominal pain, diarrhea or dysuria. COPD exacerbation - complaining of SOB, resolved - continue Duonebs - CXR 12/03 showed no acute disease. Repeat CXR showed bibasilar atelectasis and small right pleural effusion. IS ordered and encouraged use. - BNP 14 - Home oxygen walk test completed and patient did not desat with ambulation - PT eval/tx - recommends home with home health PT Leukocytosis - Uncertain etiology - trending down. likely stress/reactive. Patient is afebrile. - CXR 12/03/16 reviewed showing no acute disease. Mild bowel distention. No free air. Repeat CXR showed bibasilar atelectasis and small right pleural effusion. - UA unremarkable. Nausea and vomiting, resolved History of esophageal strictures - Control nausea, Zofran PRN. Reportedly improved. - GI following. Appreciate recommendations. S/p EGD and esophageal dilation 12/05/16 revealing duodenitis, superficial ulcers gastritis antrum, esophagitis distal esophagus. Continue PPI. Avoid NSAIDS. EGD/Dil in 6-8 weeks. Ok to d/c home from GI standpoint. Tolerating soft diet. Sleep apnea - Home CPAP at night as needed. Hypertension, chronic: - Normotensive - Continue on Toprol-XL 100 mg daily - Will continue to monitor BP Hyponatremia - mild - encourage po intake Anemia, normochromic normocytic - mild, stable Hypothyroidism - Patient currently on levothyroxine 125 g daily - TSH slightly elevated 6.390 - Recommend patient follow-up with PCP as outpatient to retest in 6-8 weeks' time. DVT prophylaxis: SCDs/TEDs. Heparin sq Discussed with patient, Ruthy Spain RN and Ale HUNTER Pt Condition on Discharge: Stable Discharge Disposition: Disch w/ Home Health Serv Discharge Time: > 30 minutes Discharge Instructions DIET: Follow Instructions for: Heart Healthy Diet, Soft Diet Activities you can perform: Regular-No Restrictions Follow up Referrals: Gastroenterology - 1 Week PCP Follow-up - 1 Week New Medications: Pantoprazole (Protonix) 40 Mg Tab 40 MG PO DAILY for Reflux, #30 TAB 0 Refills Continued Medications: Acetaminophen (Tylenol) 325 Mg Tab 650 MG PO Q8HR PRN for PAIN SCALE 1 TO 4, TAB [address] (Aspirin EC) 81 Mg Tabdr 81 MG PO DAILY, TAB 0 Refills Atorvastatin (Atorvastatin) 40 Mg Tab 40 MG PO HS for Cholesterol Management, #30 TAB 0 Refills (This prescription has been renewed) Cholecalciferol (Vitamin D3) 2,000 Unit Cap 2000 UNITS PO DAILY for Nutritional Supplement, #1 BOTTLE 0 Refills Fluticasone Propionate (Nasal) (Kls Aller-Luis Armando) 50 Mcg/Actuation Spr Folic Acid (Folic Acid) 0.8 Mg Tab 1 MG PO DAILY for Nutritional Supplement, TAB 0 Refills Guaifenesin (Cough Syrup) 100 Mg/5 Ml Liquid Levothyroxine (Levothyroxine) 25 Mcg Tab 0.125 MCG PO AC BREAKFAST for Thyroid, #30 TAB 0 Refills (This prescription has been renewed) Loratadine (Allergy Relief) 10 Mg Tab 10 MG PO DAILY, TAB Metoprolol Succinate ER 24 HR (Metoprolol Succinate ER 24 HR) 100 Mg Tab 100 MG PO DAILY for Blood Pressure Management, #30 TAB 0 Refills (This prescription has been renewed) Nicotine (Eq Nicotine) 14 Mg/24 Hour Dis Nicotine Polacrilex (Eql Nicotine) 2 Mg Simone Q1HR NEB Discontinued Medications: Indomethacin (Indomethacin) 25 Mg Cap 25 MG PO TID, CAP 0 Refills Take with food, milk, or antacids to decrease stomach adverse effects. Molly Yoon Dec 08, 2016 09:38
--- NOTE | 2016-12-08 09:41 | HHI.DCPOC ---
Discharge Care Plan Diagnosis: (1) Esophagitis determined by endoscopy (2) COPD exacerbation (3) Nausea & vomiting (4) Sleep apnea (5) Hypertension (6) Leukocytosis (7) Esophageal stricture (8) Dysphagia (9) Gastritis and duodenitis (10) Hiatal hernia Goals to Promote Your Health * To prevent worsening of your condition and complications * To maintain your health at the optimal level Directions to Meet Your Goals Please quit smoking Please refrain from drinking alcohol Please avoid all NSAIDs 1. Avoid tobacco, chocolate, peppermint, coffee and excessive alcohol. Tobacco and chocolate are well known to facilitate gastroesophageal reflux by direct effect on the gastroesophageal sphincter, a muscular band of tissue surrounding the esophagus at the top of the stomach, which normally prevents reflux from occurring. Coffee is also capable of producing this effect, and the use of decaffeinated coffee does not prevent the problem. Alcohol is a problem in large amounts, and some patients must avoid it altogether. 2. Avoid lying down for a least 1 hour after meals and avoid eating for at least 2 hours before bedtime. Gastroesophageal reflux is especially trouble-some when there is a large amount of material in the stomach after eating. Because fatty, greasy or fried foods delay emptying of the stomach, these are particularly to be avoided before bedtime. 3. Avoid stooping, straining, heavy lifting and tight abdominal clothing. All of these activities increase intra-abdominal pressure relative to intrathoracic pressure, and may thus facilitate the reflux of stomach contents into the esophagus. Obesity can also produce this effect, as can . If you must do heavy lifting, it should be done with the back upright, using the legs to lift. Antacids may be taken before such activities so that the stomach contents that do reflux are less acidic. Take your medications as prescribed Follow your dietary instruction Follow activity as directed Keep your appointments as scheduled Take your immunizations and boosters as scheduled If your symptoms worsen call your PCP, if no PCP go to Urgent Care Center or Emergency Room Smoking is Dangerous to Your Health. Avoid second hand smoke Call the 24-hour hour crisis hotline for domestic abuse at Molly Yoon Dec 08, 2016 09:41
[2016-12-08] MEDS ORDERED: HYDR-3516 PO (10:32)
[2016-12-08 10:33] LABS: HEMATOCRIT 39.2 % (39.0-51.0); MEAN CELL VOLUME 88.4 FL (80.0-100.0); MEAN CORPUSCULAR HEMOGLOBIN 28.4 PG (27.0-34.0); MEAN CORPUSCULAR HGB CONC 32.1 % (32.0-36.0); PLATELET COUNT 213 TH/MM3 (150-450); RED BLOOD COUNT 4.43 MIL/MM3 (4.50-5.90); RED CELL DISTRIBUTION WIDTH 15.2 % (11.6-17.2); REVIEW FLAG FINAL; WHITE BLOOD COUNT 13.6 TH/MM3 (4.0-11.0)
[2016-12-08 10:48] LABS: BICARBONATE 25.2 MEQ/L (21.0-32.0); POTASSIUM 3.8 MEQ/L (3.5-5.1)
== END 2016-12-08 12:09 | disposition home or self-care (01) ==
LOC: NEPC 06:31 → NEDA 09:09 → NEPGCP 10:58
PROVIDERS: ADMIT Family Medicine; ATTEND Family Medicine
DX: K22.2 Esophageal obstruction (principal); T17.228A Food in pharynx causing other injury, initial encounter; K29.70 Gastritis, unspecified, without bleeding; K29.80 Duodenitis without bleeding; K21.0 Gastro-esophageal reflux disease with esophagitis; K44.9 Diaphragmatic hernia without obstruction or gangrene; J44.1 Chronic obstructive pulmonary disease with (acute) exacerbation; R94.31 Abnormal electrocardiogram [ECG] [EKG]; E66.9 Obesity, unspecified; F12.90 Cannabis use, unspecified, uncomplicated; F31.9 Bipolar disorder, unspecified; I10 Essential (primary) hypertension; E87.1 Hypo-osmolality and hyponatremia; E03.9 Hypothyroidism, unspecified; G47.30 Sleep apnea, unspecified; Z72.0 Tobacco use
CPT/HCPCS: 00740; 43239; 43248; 71010; 71020; 80048; 81001; 82550; 83735; 83880; 84100; 84443; 84484; 85025; 85027; 88305; 88312; 92610; 93005; 94620; 94640; 94664; 96361; 96372; 96374; 96375; 97116; 97161; 99285; C1769; G0378; G8987; G8988; G8996; G8997; G8998; J1170; J1644; J2405; J7030; J7613

== ENCOUNTER 2017-05-17 07:01 | Observation (INO) | payer OTHER ==
[~2017-05-17] VITALS: Ht 175.3 cm; Wt 100.0 kg
[~2017-05-17 07:01] MED LIST changes: +ASPI81TA23 PO; +ATOR40TA16 PO; +FLUT1SPR14; +FOLI800T PO; +GUAI1SYP15; +HYDR-3516 PO; +LEVO25TA4 PO; +LORA-650 PO; -LORA10TA PO; +METO1TAB43 PO; +NICO14DI23; +NICO4LOZ; +PROT40TA PO; +TYLE325T PO; +VITA2000 PO
[2017-05-17 07:15] VITALS: BP 124/60; PULSE 58; RESP 26; TEMP 98.1; O2SAT 94
--- NOTE | 2017-05-17 07:29 | PD ---
HPI Chief Complaint: Chest Pain Time Seen by Provider: 07:08 Travel History International Travel<30 days: No Contact w/Intl Traveler<30days: No Traveled to known affect area: No History of Present Illness HPI Patient is a 66-year-old male with a history of stents followed at the [place] [facility] emergency department for chest pain unknown duration, patient's history is limited by his intoxication today. He states [facility] to come to the [facility]. He states he is having left-sided chest pain without radiation which he describes as a tightness 9 out of 10 in severity. Patient also has a history of a lobectomy, DVT, PE and states he has refused blood thinners in the past. Also endorses some shortness of breath. He continues to smoke over a pack a day. PFSH Past Medical History Arthritis: Yes (GENERALIZED) Asthma: Yes Autoimmune Disease: No Blood Disorders: No Bipolar Disorder: Yes Anxiety: Yes Depression: Yes Heart Rhythm Problems: No Cancer: Yes (lung) Cardiovascular Problems: Yes High Cholesterol: Yes Chemotherapy: No Chest Pain: Yes Congestive Heart Failure: No COPD: Yes Cerebrovascular Accident: No Diabetes: No Diminished Hearing: No Deep Vein Thrombosis: Yes Endocrine: No Gastrointestinal Disorders: Yes (HERNIA; esophageal stenosis w/dilation of esophagus) GERD: Yes Genitourinary: No Hiatal Hernia: Yes Hypertension: Yes Immune Disorder: No Implanted Vascular Access Dvce: Yes Musculoskeletal: Yes Neurologic: Yes Psychiatric: Yes Reproductive: No Respiratory: Yes (pulmonary embolism) Migraines: Yes Myocardial Infarction: Yes Radiation Therapy: No Seizures: Yes (DT'S) Sleep Apnea: Yes (CPAP) Thyroid Disease: Yes Influenza Vaccination: Yes Past Surgical History Abdominal Surgery: Yes (RIGHT INGUINAL HERNIA REPAIR) Body Medical Devices: MANDIBULAR HARDWARE Coronary Stent: Yes Neurologic Surgery: Yes (MULTIPLE FACIAL TRAUMA R/O HEAD TRAUMA) Oral Surgery: Yes (THROAT TUMOR EXCISED) Pacemaker: No Thoracic Surgery: Yes (PARTIAL LEFT LOBECTOMY -2006) Other Surgery: Yes (TRACH PLACEMENT AND REMOVAL R/T HEAD TRAUMA) Social History Alcohol Use: Yes (DAILY liquor 1/2 gallon) Tobacco Use: Yes (1 ppd) Substance Use: Yes (marijuana) Allergies-Medications (Allergen,Severity, Reaction): Coded Allergies: amitriptyline (Unverified Allergy, Severe, HEART MURMUR, 05/17/17) carbamazepine (Unverified Allergy, Severe, HEART MURMUR, 05/17/17) lithium (Unverified Allergy, Severe, THYROID PROBLEMS?, 05/17/17) Reported Meds & Prescriptions Reported Meds & Active Scripts Active Protonix (Pantoprazole Sodium) 40 Mg Tab 40 Mg PO DAILY Metoprolol Succinate ER 24 HR (Metoprolol Succinate) 100 Mg Tab 100 Mg PO DAILY Levothyroxine (Levothyroxine Sodium) 25 Mcg Tab 0.125 Mcg PO AC BREAKFAST Atorvastatin (Atorvastatin Calcium) 40 Mg Tab 40 Mg PO HS Reported Allergy Relief (Loratadine) 10 Mg Tab 10 Mg PO DAILY Folic Acid 0.8 Mg Tab 1 Mg PO DAILY Kls Aller-Luis Armando (Fluticasone Propionate (Nasal)) 50 Mcg/Actuation Spr Vitamin D3 (Cholecalciferol) 2,000 Unit Cap 2,000 Units PO DAILY Aspirin EC (Aspirin) 81 Mg Tabdr 81 Mg PO DAILY Tylenol (Acetaminophen) 325 Mg Tab 650 Mg PO Q8HR PRN Review of Systems Except as stated in HPI: all other systems reviewed are Neg Physical Exam Narrative GENERAL: Well-developed well-nourished, smells of alcohol in no obvious distress. SKIN: Focused skin assessment warm/dry. HEAD: Atraumatic. Normocephalic. EYES: Pupils equal and round. No scleral icterus. No injection or drainage. ENT: No nasal bleeding or discharge. Mucous membranes pink and moist. NECK: Trachea midline. No JVD. CARDIOVASCULAR: Regular rate and rhythm. No murmur appreciated. 2+ bilateral equal pulses in all 4 extremities. RESPIRATORY: No accessory muscle use. Inspiratory and expiratory wheezing, left -sided thoracotomy scar well-healed, no rales or rhonchi. Breath sounds equal bilaterally. GASTROINTESTINAL: Abdomen soft, non-tender, nondistended. Hepatic and splenic margins not palpable. MUSCULOSKELETAL: No obvious deformities. No clubbing. No cyanosis. No edema. NEUROLOGICAL: Awake and alert. No obvious cranial nerve deficits. Motor grossly within normal limits. Normal speech. PSYCHIATRIC: Appropriate mood and affect; insight and judgment normal. Data Data Last Documented VS Vital Signs Date Time Temp Pulse Resp B/P (MAP) Pulse Ox O2 Delivery O2 Flow Rate FiO2 05/17/17 08:00 59 13 110/59 (76) 98 Nasal Cannula 2.00 05/17/17 07:15 98.1 Orders Orders Electrocardiogram (05/17/17 07:23) Ckmb (Isoenzyme) Profile (05/17/17 07:23) Complete Blood Count With Diff (05/17/17 07:23) Comprehensive Metabolic Panel (05/17/17 07:23) Magnesium (Mg) (05/17/17 07:23) Prothrombin Time / Inr (Pt) (05/17/17 07:23) Act Partial Throm Time (Ptt) (05/17/17 07:23) Troponin I (05/17/17 07:23) Chest, Single Ap (05/17/17 07:23) Ecg Monitoring (05/17/17 07:23) Bilateral Bp Monitoring (05/17/17 07:23) Iv Access Insert/Monitor (05/17/17 07:23) Oximetry (05/17/17 07:23) Oxygen Administration (05/17/17 07:23) Sodium Chloride 0.9% Flush (Ns Flush) (05/17/17 07:30) Nitroglycerin Sl (Nitrostat Sl) (05/17/17 07:30) Prednisone (Deltasone) (05/17/17 07:30) Albuterol-Ipratropium Neb (Duoneb Neb) (05/17/17 07:30) Aspirin Chew (Aspirin Chew) (05/17/17 09:00) Alcohol (Ethanol) (05/17/17 07:27) CKMB (05/17/17 07:20) CKMB% (05/17/17 07:20) Nitroglycerin Sl (Nitrostat Sl) (05/17/17 09:45) Admit Order (Ed Use Only) (05/17/17 ) Labs Laboratory Tests Test 05/17/17 07:20 White Blood Count 14.6 TH/MM3 Red Blood Count 4.69 MIL/MM3 Hemoglobin 13.6 GM/DL Hematocrit 40.9 % Mean Corpuscular Volume 87.2 FL Mean Corpuscular Hemoglobin 28.9 PG Mean Corpuscular Hemoglobin Concent 33.2 % Red Cell Distribution Width 18.6 % Platelet Count 446 TH/MM3 Mean Platelet Volume 8.2 FL Neutrophils (%) (Auto) 53.3 % Lymphocytes (%) (Auto) 38.3 % Monocytes (%) (Auto) 5.7 % Eosinophils (%) (Auto) 1.5 % Basophils (%) (Auto) 1.2 % Neutrophils # (Auto) 7.8 TH/MM3 Lymphocytes # (Auto) 5.6 TH/MM3 Monocytes # (Auto) 0.8 TH/MM3 Eosinophils # (Auto) 0.2 TH/MM3 Basophils # (Auto) 0.2 TH/MM3 CBC Comment AUTO DIFF Differential Total Cells Counted 100 Neutrophils % (Manual) 49 % Band Neutrophils % 1 % Lymphocytes % 41 % Monocytes % 6 % Eosinophils % 1 % Basophils % 2 % Neutrophils # (Manual) 7.3 TH/MM3 Differential Comment FINAL DIFF MANUAL Platelet Estimate NORMAL Platelet Morphology Comment NORMAL Prothrombin Time 9.5 SEC Prothromb Time International Ratio 0.9 RATIO Activated Partial Thromboplast Time 25.7 SEC Blood Urea Nitrogen 10 MG/DL Creatinine 1.31 MG/DL Random Glucose 82 MG/DL Total Protein 7.8 GM/DL Albumin 3.4 GM/DL Calcium Level 8.6 MG/DL Magnesium Level 1.7 MG/DL Alkaline Phosphatase 114 U/L Aspartate Amino Transf (AST/SGOT) 50 U/L Alanine Aminotransferase (ALT/SGPT) 35 U/L Total Bilirubin 0.6 MG/DL Sodium Level 138 MEQ/L Potassium Level 3.9 MEQ/L Chloride Level 101 MEQ/L Carbon Dioxide Level 28.2 MEQ/L Anion Gap 9 MEQ/L Estimat Glomerular Filtration Rate 55 ML/MIN Total Creatine Kinase 132 U/L Creatine Kinase MB 4.6 NG/ML Troponin I LESS THAN 0.02 NG/ML Ethyl Alcohol Level 348 MG/DL MDM Medical Decision Making Medical Screen Exam Complete: Yes Emergency Medical Condition: Yes Interpretation(s) EKG independently reviewed by me, shows normal sinus rhythm with left axis deviation, late R-wave transition, no acute ST-T changes comparison to 2016. The precordial leads in V4 through V6 are somewhat more positive since 12/03/2016 otherwise no significant change. This does not represent an acute ND. Differential Diagnosis ACS, ND, gastritis, esophagitis, GERD, PE seems unlikely Narrative Course Patient room to the emergency department, EKG shows no change from previous EKG , he states the chest pain is now 10 but after nitroglycerin the patient was able to sleep soundly, found to be significantly intoxicated in the emergency department, wheezes heard but cleared with breathing treatment, patient states he still having some chest pain and requests an additional nitroglycerin. At this time the patient was recommended for observation status for further workup of his chest pain, given his alcohol level and a COPD exacerbation which is mild he will not meet criteria for chest pain center. Patient discussed with Dr. Margarita Altman for admission. Briefly I did consider a PE in this patient who has had a history before but is not tachycardic not tachypneic and does not endorse any shortness of breath. Will defer further management to the inpatient service Diagnosis Primary Impression: Chest pain Additional Impressions: Wheezing Alcohol intoxication Admitting Information Admitting Physician Requests: Observation Condition: Stable Frank Loo MD May 17, 2017 07:29
[2017-05-17] MEDS ORDERED: predniSONE 20 MG TAB PO ONE (07:30)
[2017-05-17] MEDS ORDERED: RESP: ALBUTEROL 2.5 MG/IPRATROPIUM 0.5 MG NEB (SCH) NEB ONE (07:30)
[2017-05-17] MEDS ORDERED: SODIUM CHLORIDE 0.9% FLUSH 10 ML FLUSH IVF PRN (07:30)
[2017-05-17] MEDS ORDERED: NITROGLYCERIN 0.4 MG SL 25 TABS/BTL SL ONE ×2 (07:30→09:45)
[2017-05-17 07:49] LABS: AUTOMATED NEUTROPHIL # 7.8 TH/MM3 (1.8-7.7); BASOPHIL # 0.2 TH/MM3 (0-0.2); BASOPHIL % 1.2 % (0.0-2.0); EOSINOPHIL # 0.2 TH/MM3 (0-0.4); EOSINOPHIL % 1.5 % (0.0-4.0); HEMATOCRIT 40.9 % (39.0-51.0); HEMOGLOBIN 13.6 GM/DL (13.0-17.0); LYMPH % 38.3 % (9.0-44.0); LYMPHOCYTE # 5.6 TH/MM3 (1.0-4.8); MEAN CELL VOLUME 87.2 FL (80.0-100.0); MEAN CORPUSCULAR HEMOGLOBIN 28.9 PG (27.0-34.0); MEAN CORPUSCULAR HGB CONC 33.2 % (32.0-36.0); MEAN PLATELET VOLUME 8.2 FL (7.0-11.0); MONO % 5.7 % (0.0-8.0); MONOCYTE # 0.8 TH/MM3 (0-0.9); NEUT % 53.3 % (16.0-70.0); PLATELET COUNT 446 TH/MM3 (150-450); RED BLOOD COUNT 4.69 MIL/MM3 (4.50-5.90); RED CELL DISTRIBUTION WIDTH 18.6 % (11.6-17.2); WHITE BLOOD COUNT 14.6 TH/MM3 (4.0-11.0)
[2017-05-17 07:59] VITALS: O2SAT 96
[2017-05-17 08:00] VITALS: BP 110/59; PULSE 59; RESP 13; O2SAT 98
[2017-05-17 08:00] LABS: INTERNATIONAL NORMALIZED RATIO 0.9 RATIO; PROTHROMBIN TIME - PATIENT 9.5 SEC (9.8-11.6)
[2017-05-17 08:06] LABS: ALT (GPT) 35 U/L (12-78)
--- NOTE | 2017-05-17 08:07 | RADRPT ---
EXAM DATE/TIME: 05/17/2017 07:38 [facility] COMPARISON: CHEST SINGLE AP, December 07, 2016, 15:52. INDICATIONS : Chest pain and short of breath MEDICAL HISTORY : Cardiovascular disease. Emphysema. Chronic obstructive pulmonary disease. SURGICAL HISTORY : Coronary artery stent. tumors removed from lungs and throat ENCOUNTER: Initial ACUITY: 1 day PAIN SCORE: Non-responsive. LOCATION: Bilateral chest FINDINGS: The cardiac silhouette is normal in transverse diameter. There is subsegmental atelectasis in the delilah th bases. No pleural effusions are identified. Surgical clips are present in the left hilum. CONCLUSION: 1. Subsegmental atelectasis both bases. Ulices Pritchard MD on May 17, 2017 at 8:01 Board Certified Radiologist. This report was verified electronically.
[2017-05-17 08:26] LABS: ALBUMIN 3.4 GM/DL (3.4-5.0); ALKALINE PHOSPHATASE 114 U/L (45-117); AST (GOT) 50 U/L (15-37); BICARBONATE 28.2 MEQ/L (21.0-32.0); BLOOD UREA NITROGEN 10 MG/DL (7-18); CALCIUM 8.6 MG/DL (8.5-10.1); CHLORIDE 101 MEQ/L (98-107); CREATININE 1.31 MG/DL (0.60-1.30); GLOMERULAR FILTRATION RATE 55 ML/MIN (>89); GLUCOSE,RANDOM 82 MG/DL (74-106); MAGNESIUM 1.7 MG/DL (1.5-2.5); SODIUM (NA) 138 MEQ/L (136-145); TOTAL BILIRUBIN ADULT 0.6 MG/DL (0.2-1.0); TOTAL PROTEIN 7.8 GM/DL (6.4-8.2); TROPONIN I LESS THAN 0.02 NG/ML (0.02-0.05)
[2017-05-17 08:30] LABS: BANDS 1 % (0-6); BASOPHILS 2 % (0-2); LYMPHOCYTES 41 % (9-44); MONOCYTES 6 % (0-8); NEUTROPHIL # MANUAL DIFF 7.3 TH/MM3 (1.8-7.7); POLYS (SEG NEUTROPHILS) 49 % (16-70)
[2017-05-17] MEDS ORDERED: ASPIRIN 81 MG CHEW TAB CHEW SCH (09:00)
[2017-05-17] MEDS ORDERED: BISACODYL 10 MG SUPP RECTAL PRN (10:15)
[2017-05-17] MEDS ORDERED: MAGNESIUM HYDROXIDE SUSP 30 ML CUP PO PRN (10:15)
[2017-05-17] MEDS ORDERED: LORazepam 2 MG/ML VIAL IV PUSH PRN ×4 (10:15)
[2017-05-17] MEDS ORDERED: ONDANSETRON HCL 4 MG/2 ML VIAL IVP PRN (10:15)
[2017-05-17] MEDS ORDERED: ACETAMINOPHEN 325 MG TAB PO PRN (10:15)
[2017-05-17] MEDS ORDERED: LORazepam 2 MG TAB PO PRN (10:15)
[2017-05-17] MEDS ORDERED: LORazepam 1 MG TAB PO PRN (10:15)
[2017-05-17] MEDS ORDERED: SENNOSIDES 8.6 MG TAB PO PRN (10:15)
[2017-05-17] MEDS ORDERED: LACTULOSE SYRUP 20 GM/30 ML CUP PO PRN (10:15)
[2017-05-17] MEDS ORDERED: FLUMAZENIL 0.5 MG/5 ML VIAL IV PUSH PRN (10:15)
[2017-05-17] MEDS ORDERED: NALOXONE HCL 0.4 MG/ML AMP IV PUSH PRN (10:15)
[2017-05-17] MEDS ORDERED: ENOXAPARIN SODIUM 40 MG/0.4 ML SYRINGE SQ SCH (11:00)
[2017-05-17 11:30] VITALS: BP 112/78; PULSE 67; RESP 14; O2SAT 97
--- NOTE | 2017-05-17 11:35 | HHI.HP ---
HPI Service [facility] Hospitalists Primary Care Physician [facility] Admission Diagnosis Chest Pain Diagnoses: Chief Complaint: chest pain Travel History International Travel<30 Days: No Contact w/Intl Traveler <30 Da: No Traveled to Known Affected Are: No History of Present Illness Written by Brianna Kee, acting as scribe for Dr. Arango on 05/17/17 at 11: 34. 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 The patient is currently intoxicated with etoh level 348 upon arrival, therefore history is limited and supplemented with medical records. He states he went to the [place] this morning and started coughing and had chest pains, therefore he was sent to [facility]. He locates the pain to the left anterolateral chest without radiation, rated 8.5-9/10. He states he's short of breath at baseline with his COPD and denies any acute worsening. Denies any diaphoresis or nausea/vomiting. He received nitro in the ER which significantly relieved his pain, now almost resolved. He denies any headache or visual changes. Denies any abdominal pain, diarrhea, or constipation. He admits to drinking alcohol, approximately 1/2 gallon of vodka every 2 days. His last drink was at 2am this morning. He continues to smoke tobacco. He believes he's had 2 MIs in the past. He believes he had a stress test many years ago. EMR reviewed, no history of stress test or cardiac catheterization at [facility] in the past. The patient has no other medical complaints at this time. 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 Hx of trauma from fall with multiple facial fractures Past Surgical History Left lobectomy Multiple right facial surgeries s/p trauma Tonsillectomy Reported Medications Protonix (Pantoprazole Sodium) 40 Mg Tab 40 Mg PO DAILY Metoprolol Succinate ER 24 HR (Metoprolol Succinate) 100 Mg Tab 100 Mg PO DAILY Levothyroxine (Levothyroxine Sodium) 25 Mcg Tab 0.125 Mcg PO AC BREAKFAST Atorvastatin (Atorvastatin Calcium) 40 Mg Tab 40 Mg PO HS Allergy Relief (Loratadine) 10 Mg Tab 10 Mg PO DAILY Folic Acid 0.8 Mg Tab 1 Mg PO DAILY Kls Aller-Luis Armando (Fluticasone Propionate (Nasal)) 50 Mcg/Actuation Spr Vitamin D3 (Cholecalciferol) 2,000 Unit Cap 2,000 Units PO DAILY Aspirin EC (Aspirin) 81 Mg Tabdr 81 Mg PO DAILY Tylenol (Acetaminophen) 325 Mg Tab 650 Mg PO Q8HR PRN Allergies: Coded Allergies: amitriptyline (Unverified Allergy, Severe, HEART MURMUR, 05/17/17) carbamazepine (Unverified Allergy, Severe, HEART MURMUR, 05/17/17) lithium (Unverified Allergy, Severe, THYROID PROBLEMS?, 05/17/17) Active Ordered Medications Current Medications Medications (Trade) Dose Ordered Sig/Inocencia Route Start Time Stop Time Status Last Admin (NS Flush) 2 ml UNSCH PRN IVF 05/17/17 07:30 (Aspirin Chew) 162 mg DAILY CHEW 05/17/17 09:00 05/17/17 07:37 (Tylenol) 650 mg Q4H PRN PO 05/17/17 10:15 (Zofran Inj) 4 mg Q6H PRN IVP 05/17/17 10:15 (Lovenox Inj) 40 mg Q24H SQ 05/17/17 11:00 05/17/17 11:13 (Narcan Inj) 0.4 mg UNSCH PRN IV PUSH 05/17/17 10:15 (Angela-Colace) 1 tab BID PO 05/17/17 21:00 (Milk Of Magnesia Liq) 30 ml Q12H PRN PO 05/17/17 10:15 (Senokot) 17.2 mg Q12H PRN PO 05/17/17 10:15 (Dulcolax Supp) 10 mg DAILY PRN RECTAL 05/17/17 10:15 (Lactulose Liq) 30 ml DAILY PRN PO 05/17/17 10:15 (Romazicon Inj) 0.2 mg Q1M PRN IV PUSH 05/17/17 10:15 (Ativan) 1 mg Q4H PRN PO 05/17/17 10:15 (Ativan Inj) 1 mg Q4H PRN IV PUSH 05/17/17 10:15 (Ativan) 2 mg Q2H PRN PO 05/17/17 10:15 (Ativan Inj) 2 mg Q2H PRN IV PUSH 05/17/17 10:15 (Ativan Inj) 2 mg Q1H PRN IV PUSH 05/17/17 10:15 (Ativan Inj) 2 mg Q15M PRN IV PUSH 05/17/17 10:15 Family History Father with facial cancer and heart disease with triple bypass Social History Smokes tobacco, previously quit for 15 years after lobectomy, now smoking again Drinks alcohol, 1/2 gallon of vodka every 2 days Denies any recent illicit drug use; previously abused marijuana and dilaudid Physical Exam Vital Signs Vital Signs Date Time Temp Pulse Resp B/P (MAP) Pulse Ox O2 Delivery O2 Flow Rate FiO2 05/17/17 08:00 59 13 110/59 (76) 98 Nasal Cannula 2.00 05/17/17 07:59 96 Nasal Cannula 3.00 05/17/17 07:30 97 Nasal Cannula 2.00 05/17/17 07:15 98.1 58 26 124/60 (81) 94 Room Air Physical Exam GENERAL: Well-nourished, well-developed male patient in NAD. Intoxicated. Smells of alcohol. SKIN: Warm and dry. No rash. HEAD: Normocephalic. Atraumatic. EYES: Pupils equal and round. No scleral icterus. No injection or drainage. ENT: No nasal bleeding or discharge. Mucous membranes pink and moist. NECK: Supple. Trachea midline. CARDIOVASCULAR: Regular rate and rhythm. S1, S2 noted. No murmur appreciated. RESPIRATORY: No accessory muscle use. Clear to auscultation. Breath sounds equal bilaterally. GASTROINTESTINAL: Abdomen soft, non-tender, nondistended. Normoactive bowel sounds x4. MUSCULOSKELETAL: No obvious deformities. Extremities without clubbing, cyanosis , or edema. NEUROLOGICAL: Awake and alert. No obvious cranial nerve deficits. Motor grossly within normal limits. Moving all extremities spontaneously. Normal speech. PSYCHIATRIC: Appropriate mood and affect; insight and judgment normal. Laboratory Laboratory Tests Test 05/17/17 07:20 White Blood Count 14.6 Red Blood Count 4.69 Hemoglobin 13.6 Hematocrit 40.9 Mean Corpuscular Volume 87.2 Mean Corpuscular Hemoglobin 28.9 Mean Corpuscular Hemoglobin Concent 33.2 Red Cell Distribution Width 18.6 Platelet Count 446 Mean Platelet Volume 8.2 Neutrophils (%) (Auto) 53.3 Lymphocytes (%) (Auto) 38.3 Monocytes (%) (Auto) 5.7 Eosinophils (%) (Auto) 1.5 Basophils (%) (Auto) 1.2 Neutrophils # (Auto) 7.8 Lymphocytes # (Auto) 5.6 Monocytes # (Auto) 0.8 Eosinophils # (Auto) 0.2 Basophils # (Auto) 0.2 CBC Comment AUTO DIFF Differential Total Cells Counted 100 Neutrophils % (Manual) 49 Band Neutrophils % 1 Lymphocytes % 41 Monocytes % 6 Eosinophils % 1 Basophils % 2 Neutrophils # (Manual) 7.3 Differential Comment FINAL DIFF MANUAL Platelet Estimate NORMAL Platelet Morphology Comment NORMAL Prothrombin Time 9.5 Prothromb Time International Ratio 0.9 Activated Partial Thromboplast Time 25.7 Blood Urea Nitrogen 10 Creatinine 1.31 Random Glucose 82 Total Protein 7.8 Albumin 3.4 Calcium Level 8.6 Magnesium Level 1.7 Alkaline Phosphatase 114 Aspartate Amino Transf (AST/SGOT) 50 Alanine Aminotransferase (ALT/SGPT) 35 Total Bilirubin 0.6 Sodium Level 138 Potassium Level 3.9 Chloride Level 101 Carbon Dioxide Level 28.2 Anion Gap 9 Estimat Glomerular Filtration Rate 55 Total Creatine Kinase 132 Creatine Kinase MB 4.6 Troponin I LESS THAN 0.02 Ethyl Alcohol Level 348 Result Diagram: 05/17/1771905/17/17719 Imaging Last Impressions Chest X-Ray 05/17/17722 Signed Impressions: Service Date/Time: Wednesday, May 17, 2017 07:38 - CONCLUSION: 1. Subsegmental atelectasis both bases. Ulices Pritchard MD Caprini VTE Risk Assessment Caprini VTE Risk Assessment: Mod/High Risk (score >= 2) Caprini Risk Assessment Model Point Value = 1 Point Value = 2 Point Value = 3 Point Value = 5 Age 41-60 Minor surgery BMI > 25 kg/m2 Swollen legs Varicose veins or History of unexplained or recurrent spontaneous Oral contraceptives or hormone replacement Sepsis (< 1 month) Serious lung disease, including pneumonia (< 1 month) Abnormal pulmonary function Acute myocardial infarction Congestive heart failure (< 1 month) History of inflammatory bowel disease Medical patient at bed rest Age 61-74 Arthroscopic surgery Major open surgery (> 45 min) Laparoscopic surgery (> 45 min) Malignancy Confined to bed (> 72 hours) Immobilizing plaster cast Central venous access Age >= 75 History of VTE Family history of VTE Factor V Leiden Prothrombin [id number] Lupus anticoagulant Anticardiolipin antibodies Elevated serum homocysteine Heparin-induced thrombocytopenia Other congenital or acquired thrombophilia Stroke (< 1 month) Elective arthroplasty Hip, pelvis, or leg fracture Acute spinal cord injury (< 1 month) Prophylaxis Regimen Total Risk Factor Score Risk Level Prophylaxis Regimen 0-1 Low Early ambulation 2 Moderate Order ONE of the following: *Sequential Compression Device (SCD) *Heparin 5000 units SQ BID 3-4 Higher Order ONE of the following medications: *Heparin 5000 units SQ TID *Enoxaparin/Lovenox 40 mg SQ daily (WT < 150 kg, CrCl > 30 mL/min) *Enoxaparin/Lovenox 30 mg SQ daily (WT < 150 kg, CrCl > 10-29 mL/min) *Enoxaparin/Lovenox 30 mg SQ BID (WT < 150 kg, CrCl > 30 mL/min) AND/OR *Sequential Compression Device (SCD) 5 or more Highest Order ONE of the following medications: *Heparin 5000 units SQ TID (Preferred with Epidurals) *Enoxaparin/Lovenox 40 mg SQ daily (WT < 150 kg, CrCl > 30 mL/min) *Enoxaparin/Lovenox 30 mg SQ daily (WT < 150 kg, CrCl > 10-29 mL/min) *Enoxaparin/Lovenox 30 mg SQ BID (WT < 150 kg, CrCl > 30 mL/min) AND *Sequential Compression Device (SCD) Assessment and Plan Problem List: (1) Chest pain ICD Code: R07.9 - Chest pain, unspecified Status: Acute Assessment and Plan 66-year-old male with history of COPD, GERD, Hypothyroidism, Hyperlipidemia, MS x2 reported by the patient, Tobacco Use, presents with acute onset of chest pain. Chest Pain: with self reported history of MS x2. No prior stress test or cardiac catheterization report in EMR. Initial troponin negative and EKG without acute ischemic changes. Chest pain improved after nitro. -Rule out ACS with serial cardiac enzymes and EKGs -Give aspirin, BB, statin, nitro prn -Check lipid panel, HgbA1c -Monitor on telemetry -Check nuclear stress test in the morning Tobacco Abuse: chronic -counseled on cessation -avoid nicotine patch due to vasoconstriction Alcohol Abuse with Acute Alcohol Intoxication: etoh level 348 upon arrival -counseled on cessation -[facility] protocol -thiamine/folate/MV COPD: chronic -continue duonebs q4h prn GERD: chronic -continue patient's PPI Hyperlipidemia: chronic -continue patient's statin -check lipid panel in am DVT Prophylaxis: Lovenox sq Discussed Condition With Patient, Dr. Loo Attending Statement This note was transcribed by alva Kee. I, Dr. Dusty Arango personally performed the history, physical exam, and medical decision making; and confirmed the accuracy of the information in the transcribed note. Authenticated by Dr. Dusty Arango on 05/17/17 at 15:29. Addendum Remarks Notified by Meera BRADLEY at 1730hrs on 05/17/17 that Patient Art Zavala has decided to leave the hospital against medical advice. RN reported the patient apparently left in a hurry because there is an unknown person in the patient's home and the police will not enter without him being there. This patient has the capacity to refuse care and understands the risks of leaving, including permanent disability and/or , and has had an opportunity to ask questions about his condition. The patient has been informed that he may return for care at any time, and follow up has been advised. Brianna Kee PA-C May 17, 2017 11:35 Dusty Arango MD May 17, 2017 15:29
[2017-05-17 14:49] VITALS: BP 142/76; PULSE 79; RESP 20; TEMP 97.5; O2SAT 94
[2017-05-17 14:59] LABS: TROPONIN I LESS THAN 0.02 NG/ML (0.02-0.05)
[2017-05-17] MEDS ORDERED: NITROGLYCERIN 0.4 MG SL 25 TABS/BTL SL PRN (15:15)
[2017-05-17] MEDS ORDERED: RESP: ALBUTEROL 2.5 MG/IPRATROPIUM 0.5 MG NEB (PRN) NEB (15:30)
--- NOTE | 2017-05-17 18:53 | EKG ---
Date Performed: 05/17/2017 Time Performed: 07:17:46 PTAGE: 66 years EKG: SINUS BRADYCARDIA MARKED LEFT AXIS DEVIATION LOW QRS VOLTAGE IN EXTREMITY LEADS INFERIOR MY OCARDIAL INFARCTION ACUTE NV WHEN COMPARED TO PRIOR EKG THE PATIENT IS NOW BRADYCARDIC. PREVIOUS TRACING : 12/03/2016 06.32 DOCTOR: Bita Turner Interpretating Date/Time 05/17/2017 18:48:05
[2017-05-17] MEDS ORDERED: ATORVASTATIN 40 MG TAB PO SCH (21:00)
[2017-05-17] MEDS ORDERED: DOCUSATE SODIUM 50 MG/SENNA 8.6 MG TAB PO SCH (21:00)
[2017-05-18] MEDS ORDERED: FOLIC ACID 1 MG TAB PO SCH (09:00)
[2017-05-18] MEDS ORDERED: THIAMINE HCL 100 MG TAB PO SCH (09:00)
[2017-05-18] MEDS ORDERED: METOPROLOL SUCCINATE 50 MG EXTENDED RELEASE TAB PO SCH (09:00)
[2017-05-18] MEDS ORDERED: MULTIVITAMINS/MINERALS THERAPEUTIC TAB PO SCH (09:00)
[2017-05-18] MEDS ORDERED: NON-FORMULARY DRUG (Metoprolol Succinate ER 24 HR 100 MG) PO SCH (09:00)
[2017-05-18] MEDS ORDERED: PANTOPRAZOLE SOD 40 MG DELAYED RELEASE TAB PO SCH (09:00)
--- NOTE | 2017-05-18 15:43 | EKG ---
Date Performed: 05/17/2017 Time Performed: 14:45:26 PTAGE: 66 years EKG: Sinus rhythm WITH FREQUENT VENTRICULAR PREMATURE COMPLEXES LOW QRS VOLTAGE IN EXTREMITY LEADS POSSIBLE RIGHT VENT RICULAR CONDUCTION DELAY LEFT ANTERIOR FASCICULAR BLOCK INFERIOR MYOCARDIAL INFARCTION ABNORMAL ECG PREVIOUS TRACING : 05/17/2017 07.17 DOCTOR: Junior Gtz Interpretating Date/Time 05/18/2017 15:42:03
== END 2017-05-17 18:40 | disposition left against medical advice (07) ==
LOC: NEPC 07:01 → NEDA 10:03 → NEPGCP 14:22
PROVIDERS: ADMIT Family Medicine; ATTEND Family Medicine
DX: R07.9 Chest pain, unspecified (principal); F10.129 Alcohol abuse with intoxication, unspecified; F17.210 Nicotine dependence, cigarettes, uncomplicated; J44.1 Chronic obstructive pulmonary disease with (acute) exacerbation; E78.5 Hyperlipidemia, unspecified; K21.9 Gastro-esophageal reflux disease without esophagitis; I25.2 Old myocardial infarction; E03.9 Hypothyroidism, unspecified; M19.90 Unspecified osteoarthritis, unspecified site; F31.9 Bipolar disorder, unspecified; F41.9 Anxiety disorder, unspecified; K44.9 Diaphragmatic hernia without obstruction or gangrene; I10 Essential (primary) hypertension; Z86.711 Personal history of pulmonary embolism; G47.30 Sleep apnea, unspecified; F12.10 Cannabis abuse, uncomplicated; Z79.899 Other long term (current) drug therapy; Y90.8 Blood alcohol level of 240 mg/100 ml or more; J98.11 Atelectasis; R00.1 Bradycardia, unspecified; R94.31 Abnormal electrocardiogram [ECG] [EKG]; Z95.5 Presence of coronary angioplasty implant and graft
CPT/HCPCS: 71045; 80053; 80307; 82550; 82552; 83735; 84484; 85007; 85027; 85610; 85730; 93005; 94664; 99285; G0378; J1650; J7512

== ENCOUNTER 2017-06-17 04:17 | Emergency (ER) | payer OTHER ==
[~2017-06-17] VITALS: Ht 177.8 cm; Wt 100.0 kg
[~2017-06-17 04:17] MED LIST changes: -GUAI1SYP15; -HYDR-3516 PO; -NICO14DI23; -NICO4LOZ
[2017-06-17 04:24] VITALS: BP 171/88; PULSE 80; RESP 16; TEMP 97.5; O2SAT 99
[2017-06-17] MEDS ORDERED: SODIUM CHLOR 0.9% 1000 ML INJ 1,000 ML IV ONE (04:32)
[2017-06-17] MEDS ORDERED: SODIUM CHLORIDE 0.9% FLUSH 10 ML FLUSH IVF PRN (04:45)
[2017-06-17 04:58] LABS: AUTOMATED NEUTROPHIL # 8.3 TH/MM3 (1.8-7.7); BASOPHIL # 0.1 TH/MM3 (0-0.2); BASOPHIL % 0.4 % (0.0-2.0); EOSINOPHIL % 0.4 % (0.0-4.0); HEMATOCRIT 34.7 % (39.0-51.0); HEMOGLOBIN 11.8 GM/DL (13.0-17.0); LYMPH % 25.4 % (9.0-44.0); LYMPHOCYTE # 3.2 TH/MM3 (1.0-4.8); MEAN CELL VOLUME 89.1 FL (80.0-100.0); MEAN CORPUSCULAR HEMOGLOBIN 30.3 PG (27.0-34.0); MEAN PLATELET VOLUME 8.4 FL (7.0-11.0); MONO % 8.3 % (0.0-8.0); MONOCYTE # 1.1 TH/MM3 (0-0.9); NEUT % 65.5 % (16.0-70.0); PLATELET COUNT 109 TH/MM3 (150-450); RED CELL DISTRIBUTION WIDTH 19.6 % (11.6-17.2); WHITE BLOOD COUNT 12.8 TH/MM3 (4.0-11.0)
[2017-06-17 05:12] LABS: ALBUMIN 2.8 GM/DL (3.4-5.0); BICARBONATE 23.3 MEQ/L (21.0-32.0); BLOOD UREA NITROGEN 14 MG/DL (7-18); CALCIUM 8.6 MG/DL (8.5-10.1); CHLORIDE 95 MEQ/L (98-107); CREATININE 0.98 MG/DL (0.60-1.30); GLOMERULAR FILTRATION RATE 77 ML/MIN (>89); GLUCOSE,RANDOM 50 MG/DL (74-106); SODIUM (NA) 133 MEQ/L (136-145)
[2017-06-17 05:13] LABS: ALT (GPT) 53 U/L (12-78); AST (GOT) 164 U/L (15-37)
--- NOTE | 2017-06-17 05:17 | PD ---
HPI . Weakness Chief Complaint: General Weakness Time Seen by Provider: 04:32 Travel History International Travel<30 days: No Contact w/Intl Traveler<30days: No Traveled to known affect area: No History of Present Illness HPI This patient presents to us by EVAC. I am not exactly clear as to his chief complaint. He reports that he was seen here in April for chest pain and was admitted for observation but left AMA for reasons which are unclear to me. He states that he has been drinking every day since then. He states that he has an appointment to be seen at the [facility] in a few days and that he needs to be straightened out by then. He states that he is weak and is having to ambulate around his house with a walker. He states that he is incontinent of urine and stool because of the weakness. The patient reports no known modifying factors. Symptoms have been persistent for the last month. PFSH Past Medical History Arthritis: Yes (GENERALIZED) Asthma: Yes Autoimmune Disease: No Blood Disorders: No Bipolar Disorder: Yes Anxiety: Yes Depression: Yes Heart Rhythm Problems: No Cancer: Yes (lung) Cardiovascular Problems: Yes High Cholesterol: Yes Chemotherapy: No Chest Pain: Yes Congestive Heart Failure: No COPD: Yes Cerebrovascular Accident: No Diabetes: No Diminished Hearing: No Deep Vein Thrombosis: Yes Endocrine: No Gastrointestinal Disorders: Yes (HERNIA; esophageal stenosis w/dilation of esophagus) GERD: Yes Genitourinary: No Hiatal Hernia: Yes Hypertension: Yes Immune Disorder: No Implanted Vascular Access Dvce: Yes Musculoskeletal: Yes Neurologic: Yes Psychiatric: Yes Reproductive: No Respiratory: Yes (pulmonary embolism) Migraines: Yes Myocardial Infarction: Yes Radiation Therapy: No Seizures: Yes (DT'S) Sleep Apnea: Yes (CPAP) Thyroid Disease: Yes Tetanus Vaccination: > 5 Years Influenza Vaccination: Yes Past Surgical History Abdominal Surgery: Yes (RIGHT INGUINAL HERNIA REPAIR) Body Medical Devices: MANDIBULAR HARDWARE Coronary Stent: Yes Neurologic Surgery: Yes (MULTIPLE FACIAL TRAUMA R/O HEAD TRAUMA) Oral Surgery: Yes (THROAT TUMOR EXCISED) Pacemaker: No Thoracic Surgery: Yes (PARTIAL LEFT LOBECTOMY -2006) Other Surgery: Yes (TRACH PLACEMENT AND REMOVAL R/T HEAD TRAUMA) Social History Alcohol Use: Yes (DAILY liquor 1/2 gallon) Tobacco Use: Yes (1 ppd) Substance Use: Yes (marijuana) Allergies-Medications (Allergen,Severity, Reaction): Coded Allergies: amitriptyline (Unverified Allergy, Severe, HEART MURMUR, 06/17/17) carbamazepine (Unverified Allergy, Severe, HEART MURMUR, 06/17/17) lithium (Unverified Allergy, Severe, THYROID PROBLEMS?, 06/17/17) Reported Meds & Prescriptions Reported Meds & Active Scripts Active Protonix (Pantoprazole Sodium) 40 Mg Tab 40 Mg PO DAILY Metoprolol Succinate ER 24 HR (Metoprolol Succinate) 100 Mg Tab 100 Mg PO DAILY Levothyroxine (Levothyroxine Sodium) 25 Mcg Tab 0.125 Mcg PO AC BREAKFAST Atorvastatin (Atorvastatin Calcium) 40 Mg Tab 40 Mg PO HS Reported Allergy Relief (Loratadine) 10 Mg Tab 10 Mg PO DAILY Folic Acid 0.8 Mg Tab 1 Mg PO DAILY Kls Aller-Luis Armando (Fluticasone Propionate (Nasal)) 50 Mcg/Actuation Spr Vitamin D3 (Cholecalciferol) 2,000 Unit Cap 2,000 Units PO DAILY Aspirin EC (Aspirin) 81 Mg Tabdr 81 Mg PO DAILY Tylenol (Acetaminophen) 325 Mg Tab 650 Mg PO Q8HR PRN Review of Systems ROS Limitations: Intoxication Except as stated in HPI: all other systems reviewed are Neg General / Constitutional: No: Fever, Chills Gastrointestinal: No: Nausea, Vomiting Neurologic: Positive: Weakness, Incontinence Physical Exam Narrative GENERAL: Very disheveled man with red Antonio-Aid stains in his watters and a gravelly voice. SKIN: warm/dry. The skin and nails of his feet are in very poor repair. HEAD: Normocephalic. Atraumatic. EYES: Pupils equal and round. No scleral icterus. Bilateral conjunctival injection. ENT: No nasal bleeding or discharge. Mucous membranes pink and moist. NECK: Trachea midline. Full range of motion without pain.. CARDIOVASCULAR: Regular rate and rhythm. Heart sounds are normal. RESPIRATORY: No accessory muscle use. Clear to auscultation. Breath sounds equal bilaterally. GASTROINTESTINAL: Abdomen soft. Nontender. Bowel sounds present. Nondistended. MUSCULOSKELETAL: No obvious deformities. NEUROLOGICAL: Awake and alert. No obvious cranial nerve deficits. Motor grossly within normal limits. Normal speech. PSYCHIATRIC: Appropriate mood and affect; insight and judgment normal. Data Data Last Documented VS Vital Signs Date Time Temp Pulse Resp B/P (MAP) Pulse Ox O2 Delivery O2 Flow Rate FiO2 06/17/17 09:15 97.8 78 16 140/83 (102) 99 06/17/17 07:00 Room Air Orders Orders Complete Blood Count With Diff (06/17/17 04:32) Urinalysis - C+S If Indicated (06/17/17 04:32) Iv Access Insert/Monitor (06/17/17 04:32) Sodium Chloride 0.9% Flush (Ns Flush) (06/17/17 04:45) Sodium Chlor 0.9% 1000 Ml Inj (Ns 1000 M (06/17/17 04:32) Cath For Specimen (06/17/17 04:32) Alcohol (Ethanol) (06/17/17 04:34) Comprehensive Metabolic Panel (06/17/17 04:45) Troponin I (06/17/17 04:45) Ed Discharge Order (06/17/17 08:14) Labs Laboratory Tests Test 06/17/17 04:45 06/17/17 06:20 White Blood Count 12.8 TH/MM3 Red Blood Count 3.90 MIL/MM3 Hemoglobin 11.8 GM/DL Hematocrit 34.7 % Mean Corpuscular Volume 89.1 FL Mean Corpuscular Hemoglobin 30.3 PG Mean Corpuscular Hemoglobin Concent 34.0 % Red Cell Distribution Width 19.6 % Platelet Count 109 TH/MM3 Mean Platelet Volume 8.4 FL Neutrophils (%) (Auto) 65.5 % Lymphocytes (%) (Auto) 25.4 % Monocytes (%) (Auto) 8.3 % Eosinophils (%) (Auto) 0.4 % Basophils (%) (Auto) 0.4 % Neutrophils # (Auto) 8.3 TH/MM3 Lymphocytes # (Auto) 3.2 TH/MM3 Monocytes # (Auto) 1.1 TH/MM3 Eosinophils # (Auto) 0.0 TH/MM3 Basophils # (Auto) 0.1 TH/MM3 CBC Comment DIFF FINAL Differential Comment Blood Urea Nitrogen 14 MG/DL Creatinine 0.98 MG/DL Random Glucose 50 MG/DL Total Protein 7.7 GM/DL Albumin 2.8 GM/DL Calcium Level 8.6 MG/DL Alkaline Phosphatase 157 U/L Aspartate Amino Transf (AST/SGOT) 164 U/L Alanine Aminotransferase (ALT/SGPT) 53 U/L Total Bilirubin 1.2 MG/DL Sodium Level 133 MEQ/L Potassium Level 4.1 MEQ/L Chloride Level 95 MEQ/L Carbon Dioxide Level 23.3 MEQ/L Anion Gap 15 MEQ/L Estimat Glomerular Filtration Rate 77 ML/MIN Troponin I LESS THAN 0.02 NG/ML Ethyl Alcohol Level 394 MG/DL Urine Color YELLOW Urine Turbidity CLEAR Urine pH 6.0 Urine Specific Burket 1.007 Urine Protein 30 mg/dL Urine Glucose (UA) NEG mg/dL Urine Ketones 10 mg/dL Urine Occult Blood MOD Urine Nitrite NEG Urine Bilirubin NEG Urine Urobilinogen LESS THAN 2.0 MG/DL Urine Leukocyte Esterase NEG Urine RBC 1 /hpf Urine WBC 1 /hpf Microscopic Urinalysis Comment CULT NOT INDICATED MDM Medical Decision Making Medical Screen Exam Complete: Yes Emergency Medical Condition: Yes Differential Diagnosis Differential diagnosis of weakness includes but is not limited to infection, CVA , electrolyte disturbance, renal failure, hypoglycemia Narrative Course This patient presents stating that he drinks every day and that he has an upcoming appointment at the [facility] and that he needs to get squared away before then. I am very unclear as to what he is hoping that we will do for him. I have ordered a CBC, CMP, alcohol level and UA. He is receiving a liter of fluid. CBC & BMP Diagram 06/17/17 04:45 Total Protein 7.7, Albumin 2.8 L, Calcium Level 8.6, Alkaline Phosphatase 157 H , Aspartate Amino Transf (AST/SGOT) 164 H, Alanine Aminotransferase (ALT/SGPT) 53, Total Bilirubin 1.2 H Alcohol level 394. He will be given some juice and his sugar will be rechecked. Diagnosis Primary Impression: Weakness Additional Impressions: Alcohol intoxication Qualified Codes: F10.920 - Alcohol use, unspecified with intoxication, uncomplicated Hypoglycemia Patient Instructions: Alcohol Intoxication (DC), General Instructions, Non- diabetic Hypoglycemia (DC), Weakness (DC) Disposition: 01 DISCHARGE HOME Condition: Stable Nasrin Aguirre MD Jun 17, 2017 05:17
[2017-06-17 05:18] LABS: ALKALINE PHOSPHATASE 157 U/L (45-117); TOTAL BILIRUBIN ADULT 1.2 MG/DL (0.2-1.0); TOTAL PROTEIN 7.7 GM/DL (6.4-8.2); TROPONIN I LESS THAN 0.02 NG/ML (0.02-0.05)
[2017-06-17 06:25] VITALS: BP 138/70; PULSE 91; RESP 16; O2SAT 96
[2017-06-17 07:00] VITALS: BP 158/82; PULSE 89; RESP 17; TEMP 97.8; O2SAT 99
[2017-06-17 07:55] LABS: BILIRUBIN, URINE NEG (NEG); BLOOD, URINE MOD (NEG); GLUCOSE,URINE NEG (NEG); KETONE, URINE 10 mg/dL (NEG); NITRITE,URINE NEG (NEG); URINE COLOR YELLOW (YELLW/STRAW); URINE LEUKOCYTE ESTERASE NEG (NEG)
[2017-06-17 09:15] VITALS: BP 140/83; TEMP 97.8
== END 2017-06-17 09:15 | disposition home or self-care (01) ==
LOC: NEPE 04:17
DX: R53.1 Weakness (principal); F10.129 Alcohol abuse with intoxication, unspecified; E16.2 Hypoglycemia, unspecified; Y90.8 Blood alcohol level of 240 mg/100 ml or more; E78.00 Pure hypercholesterolemia, unspecified; J44.9 Chronic obstructive pulmonary disease, unspecified; I10 Essential (primary) hypertension; I25.2 Old myocardial infarction; F17.210 Nicotine dependence, cigarettes, uncomplicated; F31.9 Bipolar disorder, unspecified; F41.9 Anxiety disorder, unspecified; Z86.718 Personal history of other venous thrombosis and embolism; Z86.711 Personal history of pulmonary embolism; Z95.5 Presence of coronary angioplasty implant and graft; Z88.8 Allergy status to other drugs, medicaments and biological substances; Z79.899 Other long term (current) drug therapy
CPT/HCPCS: 80053; 80307; 81001; 84484; 85025; 96360; 96361; 99284; J7030

== ENCOUNTER 2017-06-30 16:12 | Emergency (ER) | payer OTHER ==
[~2017-06-30] VITALS: Ht 175.3 cm; Wt 102.0 kg
[2017-06-30 16:21] VITALS: BP 119/69; PULSE 73; RESP 18; TEMP 97; O2SAT 97
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
[2017-06-30] MEDS ORDERED: DEXAMETHASONE SOD PHOS 4 MG/ML VIAL IM ONE (17:15)
[2017-06-30] MEDS ORDERED: RESP: ALBUTEROL 2.5 MG/IPRATROPIUM 0.5 MG NEB (SCH) INH ONE (17:15)
[2017-06-30] MEDS ORDERED: SODIUM CHLORIDE 0.9% FLUSH 10 ML FLUSH IVF PRN (17:15)
[2017-06-30 17:24] VITALS: O2SAT 98
--- NOTE | 2017-06-30 17:31 | RADRPT ---
EXAM DATE/TIME: 06/30/2017 17:13 [facility] COMPARISON: CHEST SINGLE AP, May 17, 2017, 7:38. CHEST PA & LAT, December 03, 2016, 7:44. INDICATIONS : Wheezing MEDICAL HISTORY : Cardiovascular disease. Emphysema. Chronic obstructive pulmonary disease. SURGICAL HISTORY : Coronary artery stent. tumors removed from lungs and throat ENCOUNTER: Initial ACUITY: 1 day PAIN SCORE: 0/10 LOCATION: Bilateral chest FINDINGS: PA and lateral views of the chest demonstrated new opacity in the left midlung seen on both the front al and lateral views suggesting a partial consolidative infiltrate. Linear opacities at the left jay g base suggesting scarring or atelectasis are stable. There is also stable thickening of the pleura in the lower lateral right chest. The heart is normal in size. Clips are seen in the infrahilar reg ion. CONCLUSION: There is a new segmental infiltrate in the left upper lobe posteriorly. Dell Waller MD on June 30, 2017 at 17:27 Board Certified Radiologist. This report was verified electronically.
[2017-06-30 17:59] VITALS: BP 132/77; PULSE 71; RESP 18; O2SAT 94; O2SAT 98
[2017-06-30] MEDS ORDERED: MEDR4PAK PO (18:57)
[2017-06-30] MEDS ORDERED: CIPR-9 PO (18:58)
== END 2017-06-30 19:32 | disposition home or self-care (01) ==
LOC: NEPC 16:12
DX: J18.9 Pneumonia, unspecified organism (principal); J44.1 Chronic obstructive pulmonary disease with (acute) exacerbation; I10 Essential (primary) hypertension; E78.00 Pure hypercholesterolemia, unspecified; E03.9 Hypothyroidism, unspecified; I25.2 Old myocardial infarction; F17.210 Nicotine dependence, cigarettes, uncomplicated; F31.9 Bipolar disorder, unspecified; Z85.118 Personal history of other malignant neoplasm of bronchus and lung; Z86.718 Personal history of other venous thrombosis and embolism; Z88.8 Allergy status to other drugs, medicaments and biological substances; Z79.82 Long term (current) use of aspirin; Z79.899 Other long term (current) drug therapy
CPT/HCPCS: 71046; 94664; 96372; 99283; J1100